=== PATIENT | male | born 1975 | race Hispanic/Latino ===

== ENCOUNTER 2021-03-07 13:47 | Emergency (ER) | payer OTHER, SELFPAY ==
--- NOTE | 2021-03-07 16:50 | Event Note ---
ED Screening Note ED Screening Note: pt reports he is having SI he states he would get a razor he states he began feeling like this yesterday he states he has also been having HI and "doing something stupid" but does not have a plan he has cut his wrist before he has been to a psych facility before pmhx skin cancer, paranoid schizophrenia, anxiety reports he is supposed to be taking gabapentin and seroquel and klonipin and lamictal +smoker non ETOH +cocaine This initial assessment/diagnostic orders/clinical plan/treatment(s) is/are subject to change based on patients health status, clinical progression and re- assessment by fellow clinical providers in the ED. Further treatment and workup at subsequent clinical providers discretion. Patient/guardian urged not to elope from the ED as their condition may be serious if not clinically assessed and managed. Initial orders include: mental health orders ED hold charge nurse notified pt needs room NATE
--- NOTE | 2021-03-07 17:16 | Emergency Department Report ---
HPI - General Chief Complaint: Medical Clearance Time Seen by Provider: 03/07/21 16:47 - HPI HPI: This is a 45-year-old male presents to the emergency department for a mental health evaluation. He has a history of paranoid schizophrenia and anx iety. The patient was previously on Seroquel and Klonopin, but has been out of his medication for a while. He endorses suicidal ideations in which he says he would get a razor and cut himself. He does not specifically endorse homicidal ideations, but does say that he has racing thoughts in which he might "do something stupid including hurt somebody." Overall the patient admits to these racing thoughts and has not been able to sleep over the past 48 hours. He does admit to using cocaine yesterday. He is an occasional tobacco smoker. He denies any current auditory or visual hallucinations. ED Past Medical Hx - Past Medical History Hx Seizures: Yes Hx Psychiatric Treatment: Yes (`DEPRESSION/ANXIETY) - Surgical History Past Surgical History?: No ED Review of Systems ROS: Stated complaint: NAUSEA/HEADACHES Other details as noted in HPI Comment: All other systems reviewed and negative Constitutional: denies: see HPI, fever Eyes: denies: eye pain, vision change Respiratory: denies: cough, shortness of breath Cardiovascular: denies: chest pain, palpitations Gastrointestinal: denies: abdominal pain, vomiting Musculoskeletal: denies: joint swelling, arthralgia Neurological: denies: headache, weakness Psychiatric: anxiety, suicidal thoughts. denies: auditory hallucinations, visual hallucinations Physical Exam - Physical Exam Vital Signs: Vital Signs 03/07/21 15:14 Temperature 98.1 F Pulse Rate 64 Respiratory 20 Rate Blood Pressure 125/77 [Right] O2 Sat by Pulse 96 Oximetry Physical Exam: GENERAL: The patient is well-developed well-nourished. HENT: Normocephalic. Atraumatic. Patient has moist mucous membranes. EYES: Extraocular motions are intact. NECK: Supple. Trachea is midline. CHEST/LUNGS: Clear to auscultation. There is no respiratory distress noted. HEART/CARDIOVASCULAR: Regular. There is no tachycardia. There is no murmur. ABDOMEN: Abdomen is soft, nontender. Patient has normal bowel sounds. SKIN: Skin is warm and dry. NEURO: The patient is awake, alert, and oriented. The patient is cooperative. Normal speech. MUSCULOSKELETAL: There is no tenderness or deformity. There is no limitation range of motion. ED Course Vital Signs 03/07/21 15:14 Temperature 98.1 F Pulse Rate 64 Respiratory 20 Rate Blood Pressure 125/77 [Right] O2 Sat by Pulse 96 Oximetry ED Medical Decision Making - Lab Data Result diagrams: 03/07/21 18:34 03/07/21 18:34 Lab Results 03/07/21 03/07/21 03/07/21 Range/Units 18:34 18:34 18:34 WBC 8.8 (4.5-11.0) K/mm3 RBC 4.81 (3.65-5.03) M/mm3 Hgb 15.5 H (11.8-15.2) gm/dl Hct 44.8 (35.5-45.6) % MCV 93 (84-94) fl MCH 32 (28-32) pg MCHC 35 H (32-34) % RDW 13.2 (13.2-15.2) % Plt Count 235 (140-440) K/mm3 Lymph % (Auto) 18.5 (13.4-35.0) % [place] % (Auto) 8.6 H (0.0-7.3) % Eos % (Auto) 0.4 (0.0-4.3) % Baso % (Auto) 0.6 (0.0-1.8) % Lymph # (Auto) 1.6 (1.2-5.4) K/mm3 [place] # (Auto) 0.8 (0.0-0.8) K/mm3 Eos # (Auto) 0.0 (0.0-0.4) K/mm3 Baso # (Auto) 0.1 (0.0-0.1) K/mm3 Seg Neutrophils % 71.9 H (40.0-70.0) % Seg Neutrophils # 6.4 (1.8-7.7) K/mm3 Sodium 140 (137-145) mmol/L Potassium 3.9 (3.6-5.0) mmol/L Chloride 101.7 (98-107) mmol/L Carbon Dioxide 26 (22-30) mmol/L Anion Gap 16 mmol/L BUN 14 (9-20) mg/dL Creatinine 1.0 (0.8-1.3) mg/dL Estimated GFR > 60 ml/min BUN/Creatinine Ratio 14 % Glucose 135 H (75-100) mg/dL Calcium 9.3 (8.4-10.2) mg/dL Total Bilirubin 0.70 (0.1-1.2) mg/dL AST 24 (5-40) units/L ALT 38 (7-56) units/L Alkaline Phosphatase 55 (35-129) units/L Total Protein 7.2 (6.3-8.2) g/dL Albumin 4.5 (3.9-5) g/dL Albumin/Globulin Ratio 1.7 % Urine Color (Yellow) Urine Turbidity (Clear) Urine pH (5.0-7.0) Ur Specific [place] (1.003-1.030) Urine Protein (Negative) mg/dL Urine Glucose (UA) (Negative) mg/dL Urine Ketones (Negative) mg/dL Urine Blood (Negative) Urine Nitrite (Negative) Urine Bilirubin (Negative) Urine Urobilinogen (<2.0) mg/dL Ur Leukocyte Esterase (Negative) Urine WBC (Auto) (0.0-6.0) /HPF Urine RBC (Auto) (0.0-6.0) /HPF Urine Mucus /HPF Urine Opiates Screen Urine Methadone Screen Ur Barbiturates Screen Ur Phencyclidine Scrn Ur Amphetamines Screen U Benzodiazepines Scrn Urine Cocaine Screen U Marijuana (THC) Screen Drugs of Abuse Note Plasma/Serum Alcohol < 0.01 (0-0.07) % 03/07/21 03/07/21 Range/Units Unknown Unknown WBC (4.5-11.0) K/mm3 RBC (3.65-5.03) M/mm3 Hgb (11.8-15.2) gm/dl Hct (35.5-45.6) % MCV (84-94) fl MCH (28-32) pg MCHC (32-34) % RDW (13.2-15.2) % Plt Count (140-440) K/mm3 Lymph % (Auto) (13.4-35.0) % [place] % (Auto) (0.0-7.3) % Eos % (Auto) (0.0-4.3) % Baso % (Auto) (0.0-1.8) % Lymph # (Auto) (1.2-5.4) K/mm3 [place] # (Auto) (0.0-0.8) K/mm3 Eos # (Auto) (0.0-0.4) K/mm3 Baso # (Auto) (0.0-0.1) K/mm3 Seg Neutrophils % (40.0-70.0) % Seg Neutrophils # (1.8-7.7) K/mm3 Sodium (137-145) mmol/L Potassium (3.6-5.0) mmol/L Chloride (98-107) mmol/L Carbon Dioxide (22-30) mmol/L Anion Gap mmol/L BUN (9-20) mg/dL Creatinine (0.8-1.3) mg/dL Estimated GFR ml/min BUN/Creatinine Ratio % Glucose (75-100) mg/dL Calcium (8.4-10.2) mg/dL Total Bilirubin (0.1-1.2) mg/dL AST (5-40) units/L ALT (7-56) units/L Alkaline Phosphatase (35-129) units/L Total Protein (6.3-8.2) g/dL Albumin (3.9-5) g/dL Albumin/Globulin Ratio % Urine Color Yellow (Yellow) Urine Turbidity Clear (Clear) Urine pH 6.0 (5.0-7.0) Ur Specific [place] 1.025 (1.003-1.030) Urine Protein 30 mg/dl (Negative) mg/dL Urine Glucose (UA) Neg (Negative) mg/dL Urine Ketones Neg (Negative) mg/dL Urine Blood Neg (Negative) Urine Nitrite Neg (Negative) Urine Bilirubin Neg (Negative) Urine Urobilinogen 2.0 (<2.0) mg/dL Ur Leukocyte Esterase Neg (Negative) Urine WBC (Auto) 1.0 (0.0-6.0) /HPF Urine RBC (Auto) 1.0 (0.0-6.0) /HPF Urine Mucus 2+ /HPF Urine Opiates Screen Negative Urine Methadone Screen Negative Ur Barbiturates Screen Negative Ur Phencyclidine Scrn Negative Ur Amphetamines Screen Negative U Benzodiazepines Scrn Negative Urine Cocaine Screen Positive U Marijuana (THC) Screen Negative Drugs of Abuse Note Disclamer Plasma/Serum Alcohol (0-0.07) % - Medical Decision Making This patient presents to the emergency department with both suicidal and homicidal ideations. For this reason he was placed on a 1013 and an ED hold. He was seen by the psychiatric filling and packing supervisor who agrees with the plan for inpatient stabilization. Labs have been mostly unremarkable including CBC, metabolic panel, blood alcohol level, urinalysis. UDS positive for cocaine, but the patient does not appear acutely intoxicated. Vital signs have been reassuring throughout his ED course thus far including being afebrile. Patient is medically cleared for psychiatric placement. Critical Care Time: No Critical care attestation.: If time is entered above; I have spent that time in minutes in the direct care of this critically ill patient, excluding procedure time. ED Disposition Clinical Impression: Suicidal ideations, Homicidal ideations, Schizophrenia Disposition: [address] [place] [address] HOSPITAL Is pt being admited?: No Condition: Stable Time of Disposition: 19:40
[2021-03-07] MEDS ORDERED: ONDANSETRON 4 MG ODT TAB PO ONE (18:02)
[2021-03-07] MEDS ORDERED: ACETAMINOPHEN 325 MG TAB PO ONE (18:03)
[2021-03-07 18:22] LABS: Amphetamine Screen,Urine Negative; Benzodiazepines Screen,Urine Negative; Cannabinoid Screen,Urine Negative; Methadone Screen,Urine Negative; Opiate Screen,Urine Negative
[2021-03-07 18:39] LABS: Cocaine Screen,Urine Positive
[2021-03-07 18:40] LABS: Bilirubin,Urine NEG (Negative); Blood,Urine NEG (Negative); Color,Urine Yellow (Yellow); Mucus,Urine 2+ /HPF
[2021-03-07 19:14] LABS: Alanine Aminotransferase 38 units/L (7-56); Albumin 4.5 g/dL (3.9-5); BUN/Creatinine Ratio 14; Blood Urea Nitrogen 14 mg/dL (9-20); Calcium 9.3 mg/dL (8.4-10.2); Hemolysis Index 15
[2021-03-07 19:25] LABS: Basophils # (Auto) 0.1 K/mm3 (0.0-0.1); Basophils % (Auto) 0.6 % (0.0-1.8); Eosinophils % (Auto) 0.4 % (0.0-4.3); Hematocrit 44.8 % (35.5-45.6); Hemoglobin 15.5 gm/dl (11.8-15.2); Lymphocytes # (Auto) 1.6 K/mm3 (1.2-5.4); Lymphocytes % (Auto) 18.5 % (13.4-35.0); Mean Corpuscular HGB Conc 35 % (32-34); Mean Corpuscular Volume 93 fl (84-94); Monocytes # (Auto) 0.8 K/mm3 (0.0-0.8); Monocytes % (Auto) 8.6 % (0.0-7.3); Platelet Count 235 K/mm3 (140-440); Red Blood Count 4.81 M/mm3 (3.65-5.03); Red Cell Distribution Width 13.2 % (13.2-15.2)
[2021-03-08 08:08] VITALS: BP 107/69
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
[2021-03-08] MEDS ORDERED: GABAPENTIN 100 MG CAP PO SCH ×2 (10:00→14:00)
[2021-03-08] MEDS ORDERED: lamoTRIgine 25 MG TAB PO SCH ×2 (10:00→16:00)
--- NOTE | 2021-03-08 10:36 | Event Note ---
Date: 03/08/21 S: No events reported overnight O: Vital Signs - 24 hr 03/07/21 03/07/21 03/07/21 15:14 17:34 19:51 Temperature 98.1 F Pulse Rate 64 Respiratory 20 20 Rate Blood Pressure 125/77 [Right] O2 Sat by Pulse 96 98 99 Oximetry 03/07/21 03/08/21 20:22 08:06 Temperature 98.1 F 98.0 F Pulse Rate 59 L 61 Respiratory 18 20 Rate Blood Pressure 115/81 107/69 [Right] O2 Sat by Pulse 97 96 Oximetry A: Suicidal ideation/1013 P: Awaiting inpatient psychiatric placement
[2021-03-08] MEDS ORDERED: clonazePAM 0.5 MG TAB PO SCH (14:00)
[2021-03-08] MEDS ORDERED: QUEtiapine 100 MG TAB PO SCH (22:00)
[2021-03-09] MEDS ORDERED: lamoTRIgine 25 MG TAB PO SCH (14:00)
== END 2021-03-08 17:12 ==
LOC: ED 13:47 → EEVIPCON 13:47 → ED 03-08 17:12
DX: R45.851 Suicidal ideations (principal); R45.850 Homicidal ideations; F20.9 Schizophrenia, unspecified; Z20.822 Contact with and (suspected) exposure to COVID-19; F41.9 Anxiety disorder, unspecified; F32.9 Major depressive disorder, single episode, unspecified
CPT/HCPCS: 36415; 80053; 80307; 81001; 85025; 99285; U0003; 80320; G0480; Q0162

== ENCOUNTER 2021-03-08 14:51 | Inpatient (IN) | payer SELFPAY ==
[2021-03-08] MEDS ORDERED: QUEtiapine 100 MG TAB PO SCH (22:00)
[2021-03-08] MEDS ORDERED: traZODone 50 MG TAB PO SCH (22:00)
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
[2021-03-09] MEDS: lamoTRIgine 25 MG TAB PO SCH (09:49)
[2021-03-09] MEDS: clonazePAM 0.5 MG TAB PO SCH ×3 (09:49→20:22)
[2021-03-09] MEDS: GABAPENTIN 100 MG CAP PO SCH ×3 (09:49→20:22)
[2021-03-09 10:24] LABS: Basophils % (Auto) 0.7 % (0.0-1.8); Eosinophils # (Auto) 0.1 K/mm3 (0.0-0.4); Eosinophils % (Auto) 1.9 % (0.0-4.3); Hematocrit 42.9 % (35.5-45.6); Hemoglobin 14.9 gm/dl (11.8-15.2); Lymphocytes # (Auto) 1.5 K/mm3 (1.2-5.4); Lymphocytes % (Auto) 24.8 % (13.4-35.0); Mean Corpuscular HGB Conc 35 % (32-34); Mean Corpuscular Volume 92 fl (84-94); Monocytes # (Auto) 0.7 K/mm3 (0.0-0.8); Monocytes % (Auto) 11.1 % (0.0-7.3); Platelet Count 207 K/mm3 (140-440); Red Blood Count 4.68 M/mm3 (3.65-5.03); Red Cell Distribution Width 13.1 % (13.2-15.2)
[2021-03-09 10:48] LABS: Alanine Aminotransferase 34 units/L (7-56); Albumin 4.2 g/dL (3.9-5); BUN/Creatinine Ratio 17; Blood Urea Nitrogen 19 mg/dL (9-20); Calcium 9.6 mg/dL (8.4-10.2); HDL Cholesterol 33 mg/dL (40-59); Hemolysis Index 15; LDL Cholesterol,Direct 99 mg/dL (50-130)
--- NOTE | 2021-03-09 14:12 | Consultation ---
History of Present Illness - History of Present Illness This is a 45-year-old male presents to the emergency department for a mental health evaluation. He has a history of paranoid schizophrenia and anxiety. The patient was previously on Seroquel and Klonopin, but has been out of his medication for a while. He endorses suicidal ideations in which he says he would get a razor and cut himself. He does not specifically endorse homicidal ideations, but does say that he has racing thoughts in which he might "do something stupid including hurt somebody." Overall the patient admits to these racing thoughts and has not been able to sleep over the past 48 hours. He does admit to using cocaine yesterday. He is an occasional tobacco smoker. He denies any current auditory or visual hallucinations. ED Past Medical Hx - Past Medical History Hx Seizures: Yes Hx Psychiatric Treatment: Yes (`DEPRESSION/ANXIETY) - Surgical History Past Surgical History?: No ED Review of Systems ROS: Stated complaint: NAUSEA/HEADACHES Other details as noted in HPI Medications and Allergies Allergies Allergy/AdvReac Type Severity Reaction Status Date / Time No Known Allergies Allergy Unverified 03/07/21 15:09 Home Medications Medication Instructions Recorded Confirmed Last Taken Type Gabapentin 100 mg PO TID 03/08/21 03/08/21 03/08/21 16:00 History QUEtiapine [SEROquel] 100 mg PO QHS 03/08/21 03/08/21 Unknown History clonazePAM [KlonoPIN] 0.25 mg PO TID 03/08/21 03/08/21 03/08/21 16:00 History lamoTRIgine [LaMICtal] 25 mg PO QDAY 03/08/21 03/08/21 Unknown History Active Meds: Active Medications Clonazepam (Clonazepam 0.5 Mg Tab) 0.25 mg PO TID [facility] Last Admin: 03/09/21 09:49 Dose: 0.25 mg Documented by: Gabapentin (Gabapentin 100 Mg Cap) 100 mg PO TID [facility] Last Admin: 03/09/21 09:49 Dose: 100 mg Documented by: Hydroxyzine Pamoate (Hydroxyzine Pamoate 25 Mg Cap) 25 mg PO Q6H PRN PRN Reason: Anxiety Lamotrigine (Lamotrigine 25 Mg Tab) 25 mg PO QDAY PENG Last Admin: 03/09/21 09:49 Dose: 25 mg Documented by: Quetiapine Fumarate (Quetiapine 100 Mg Tab) 100 mg PO QHS [facility] Exam - Constitutional Vitals: Temp Pulse Resp BP Pulse Ox 98.0 F 65 16 116/68 98 03/09/21 08:41 03/09/21 08:41 03/09/21 08:41 03/09/21 08:41 03/09/21 08:41 Results - Labs CBC & Chem 7: 03/09/21 10:01 03/09/21 10:01 Labs: Abnormal lab results 03/08/21 03/09/21 03/09/21 Range/Units 18:32 10:01 10:01 MCHC 35 H (32-34) % RDW 13.1 L (13.2-15.2) % [place] % (Auto) 11.1 H (0.0-7.3) % POC Glucose 106 H (70-105) mg/dL Triglycerides 209 H (2-149) mg/dL HDL Cholesterol 33 L (40-59) mg/dL
[2021-03-09] MEDS: QUEtiapine 100 MG TAB PO SCH (21:25)
[2021-03-10] MEDS: clonazePAM 0.5 MG TAB PO SCH ×3 (08:21→20:31)
[2021-03-10] MEDS: GABAPENTIN 100 MG CAP PO SCH ×3 (08:21→20:30)
--- NOTE | 2021-03-10 08:43 | Progress Note ---
Subjective Date of service: 03/10/21 Subjective Comment: 03/10/2021: The patient was seen eating breakfast, he reports doing well. He reports sleep as fair and appetite as good. He denies any current suicidal/homicidal ideation and denies hallucinations. Per nurse, the patient had a quiet night. No changes made today. REVIEW OF SYSTEMS Constitutional: Negative for weight loss ENT: Negative for stridor Respiratory: Negative for cough or hemoptysis All other systems reviewed and are negative MENTAL STATUS EXAMINATION General Appearance and Behavior: Age appropriate, good hygiene, wearing appropriate clothes, calm and cooperative polite with questioning. Cooperation: engaged Psychomotor Behavior: Psychomotor normal Mood: depressed Affect and affective range: congruent with stated mood Thought Process: goal directed Thought Content: Not SI Speech: Normal volume, Regular rate and rhythm, Suicidal Ideation: Denies Homicidal Ideation: Denies Hallucinations: Denies Delusions: None elicited Impulse Control: Questionable Insight and Judgment: Limited Memory: Limited Attention: attentive Orientation: a/o Assessment and Plan (1)Schizophrenia Treatment Plan Patient admitted for inpatient psychiatric evaluation, medication adjustment and close monitoring The patient's behavior, mood, sleep and appetite will be closely monitored. Patient enrolled in individual and group therapeutic sessions and encouraged to attend. Patient provided with a safe and structured environment. Patient's physical health needs will be addressed by the Hospitalist. Hospitalist Consulted Labs including CBC, CMP, Lipid profile and Hemoglobin A1C levels ordered for baseline reference Social Assessment will be completed and the Strap Buckler will work with patient and family to ensure a suitable and safe disposition Medication adjustment will be made as clinically indicated Continue home medications No changes made today The patient agreed to vince Klonopin and start Vistaril 25 mg po every 6 hours as needed for anxiety Usual Wellness Zoroastrian/Preservation: - Start Trazodone 50 mg po QHS & 50 mg po QHS PRN between 10 PM & 2 AM for insomnia - Start Melatonin 5 mg po QHS to promote circadian rhythm The patient agreed on the treatment plan, understood the risk, benefit, alternative treatment, potential consequence of no treatment, and gave informed consent. Estimated days: 5 Post hospital care: primary care provider, psychiatric provider Case staffed with Dr. Joseph Medications and Allergies Medications and Allergies Allergies Allergy/AdvReac Type Severity Reaction Status Date / Time No Known Allergies Allergy Unverified 03/07/21 15:09 Home Medications Medication Instructions Recorded Confirmed Last Taken Type Gabapentin 100 mg PO TID 03/08/21 03/08/21 03/08/21 16:00 History QUEtiapine [SEROquel] 100 mg PO QHS 03/08/21 03/08/21 Unknown History clonazePAM [KlonoPIN] 0.25 mg PO TID 03/08/21 03/08/21 03/08/21 16:00 History lamoTRIgine [LaMICtal] 25 mg PO QDAY 03/08/21 03/08/21 Unknown History Active Meds: Active Medications Clonazepam (Clonazepam 0.5 Mg Tab) 0.25 mg PO TID [facility] Last Admin: 03/10/21 08:21 Dose: 0.25 mg Documented by: Gabapentin (Gabapentin 100 Mg Cap) 100 mg PO TID [facility] Last Admin: 03/10/21 08:21 Dose: 100 mg Documented by: Hydroxyzine Pamoate (Hydroxyzine Pamoate 25 Mg Cap) 25 mg PO Q6H PRN PRN Reason: Anxiety Lamotrigine (Lamotrigine 25 Mg Tab) 25 mg PO QDAY [facility] Last Admin: 03/09/21 09:49 Dose: 25 mg Documented by: Quetiapine Fumarate (Quetiapine 100 Mg Tab) 100 mg PO QHS [facility] Last Admin: 03/09/21 21:25 Dose: 100 mg Documented by: Results - Results Labs/Vitals: Laboratory Last Values WBC 5.9 K/mm3 (4.5-11.0) 03/09/21 10:01 RBC 4.68 M/mm3 (3.65-5.03) 03/09/21 10:01 Hgb 14.9 gm/dl (11.8-15.2) 03/09/21 10:01 Hct 42.9 % (35.5-45.6) 03/09/21 10:01 MCV 92 fl (84-94) 03/09/21 10:01 MCH 32 pg (28-32) 03/09/21 10:01 MCHC 35 % (32-34) H 03/09/21 10:01 RDW 13.1 % (13.2-15.2) L 03/09/21 10:01 Plt Count 207 K/mm3 (140-440) 03/09/21 10:01 Lymph % (Auto) 24.8 % (13.4-35.0) 03/09/21 10:01 [place] % (Auto) 11.1 % (0.0-7.3) H 03/09/21 10:01 Eos % (Auto) 1.9 % (0.0-4.3) 03/09/21 10:01 Baso % (Auto) 0.7 % (0.0-1.8) 03/09/21 10:01 Lymph # (Auto) 1.5 K/mm3 (1.2-5.4) 03/09/21 10:01 [place] # (Auto) 0.7 K/mm3 (0.0-0.8) 03/09/21 10:01 Eos # (Auto) 0.1 K/mm3 (0.0-0.4) 03/09/21 10:01 Baso # (Auto) 0.0 K/mm3 (0.0-0.1) 03/09/21 10:01 Seg Neutrophils % 61.5 % (40.0-70.0) 03/09/21 10:01 Seg Neutrophils # 3.6 K/mm3 (1.8-7.7) 03/09/21 10:01 Sodium 140 mmol/L (137-145) 03/09/21 10:01 Potassium 4.1 mmol/L (3.6-5.0) 03/09/21 10:01 Chloride 103.8 mmol/L (98-107) 03/09/21 10:01 Carbon Dioxide 29 mmol/L (22-30) 03/09/21 10:01 Anion Gap 11 mmol/L 03/09/21 10:01 BUN 19 mg/dL (9-20) 03/09/21 10:01 Creatinine 1.1 mg/dL (0.8-1.3) 03/09/21 10:01 Estimated GFR > 60 ml/min 03/09/21 10:01 BUN/Creatinine Ratio 17 % 03/09/21 10:01 Glucose 83 mg/dL (75-100) 03/09/21 10:01 POC Glucose 106 mg/dL (70-105) H 03/08/21 18:32 Hemoglobin A1c 5.4 % (4-6) 03/09/21 10:01 Calcium 9.6 mg/dL (8.4-10.2) 03/09/21 10:01 Total Bilirubin 0.60 mg/dL (0.1-1.2) 03/09/21 10:01 AST 19 units/L (5-40) 03/09/21 10:01 ALT 34 units/L (7-56) 03/09/21 10:01 Alkaline Phosphatase 49 units/L (35-129) 03/09/21 10:01 Total Protein 6.5 g/dL (6.3-8.2) 03/09/21 10:01 Albumin 4.2 g/dL (3.9-5) 03/09/21 10:01 Albumin/Globulin Ratio 1.8 % 03/09/21 10:01 Triglycerides 209 mg/dL (2-149) H 03/09/21 10:01 Cholesterol 142 mg/dL (50-199) 03/09/21 10:01 LDL Cholesterol Direct 99 mg/dL (50-130) 03/09/21 10:01 HDL Cholesterol 33 mg/dL (40-59) L 03/09/21 10:01 Cholesterol/HDL Ratio 4.30 % 03/09/21 10:01 TSH 0.501 mlU/mL (0.270-4.200) 03/09/21 10:01 Last Vital Signs Temp 97.6 F 03/10/21 07:39 Pulse 48 L 03/10/21 07:39 Resp 16 03/10/21 07:39 BP 120/63 03/10/21 07:39 Pulse Ox 95 03/10/21 07:39
[2021-03-10] MEDS: lamoTRIgine 25 MG TAB PO SCH (09:10)
[2021-03-10] MEDS: QUEtiapine 100 MG TAB PO SCH (21:40)
[2021-03-11] MEDS: clonazePAM 0.5 MG TAB PO SCH ×3 (08:03→21:37)
[2021-03-11] MEDS: GABAPENTIN 100 MG CAP PO SCH ×3 (08:03→20:55)
--- NOTE | 2021-03-11 08:28 | Progress Note ---
Subjective Date of service: 03/11/21 Subjective Comment: 03/10/2021: The patient was seen eating breakfast, he reports doing well. He reports sleep as fair and appetite as good. He denies any current suicidal/homicidal ideation and denies hallucinations. Per nurse, the patient had a quiet night. No changes made today. 03/11/2021: The patient reports feeling better, but continues to have intermittent suicidal ideation. He states that he is worried about placement post discharge. He reports sleep as fair and appetite as good. He denies any current suicidal/homicidal ideation and denies hallucinations. Per nurse, the patient had a quiet night. Start lamictal 50mg po daily. REVIEW OF SYSTEMS Constitutional: Negative for weight loss ENT: Negative for stridor Respiratory: Negative for cough or hemoptysis All other systems reviewed and are negative MENTAL STATUS EXAMINATION General Appearance and Behavior: Age appropriate, good hygiene, wearing appropriate clothes, calm and cooperative polite with questioning. Cooperation: engaged Psychomotor Behavior: Psychomotor normal Mood: depressed Affect and affective range: congruent with stated mood Thought Process: goal directed Thought Content: Not SI Speech: Normal volume, Regular rate and rhythm, Suicidal Ideation: Denies Homicidal Ideation: Denies Hallucinations: Denies Delusions: None elicited Impulse Control: Questionable Insight and Judgment: Limited Memory: Limited Attention: attentive Orientation: a/o Assessment and Plan (1)Schizophrenia Treatment Plan Patient admitted for inpatient psychiatric evaluation, medication adjustment and close monitoring The patient's behavior, mood, sleep and appetite will be closely monitored. Patient enrolled in individual and group therapeutic sessions and encouraged to attend. Patient provided with a safe and structured environment. Patient's physical health needs will be addressed by the Hospitalist. Cristiana fowler Consulted Labs including CBC, CMP, Lipid profile and Hemoglobin A1C levels ordered for baseline reference Social Assessment will be completed and the Title Lawyer will work with patient and family to ensure a suitable and safe disposition Medication adjustment will be made as clinically indicated Continue home medications Start Lamictal 50mg po daily The patient agreed to vince Klonopin and start Vistaril 25 mg po every 6 hours as needed for anxiety Usual Wellness Buddhism/Preservation: - Start Trazodone 50 mg po QHS & 50 mg po QHS PRN between 10 PM & 2 AM for insomnia - Start Melatonin 5 mg po QHS to promote circadian rhythm The patient agreed on the treatment plan, understood the risk, benefit, alternative treatment, potential consequence of no treatment, and gave informed consent. Estimated days:5 Post hospital care: primary care provider, psychiatric provider Case staffed with Dr. Joseph Medications and Allergies Medications and Allergies Allergies Allergy/AdvReac Type Severity Reaction Status Date / Time No Known Allergies Allergy Unverified 03/07/21 15:09 Home Medications Medication Instructions Recorded Confirmed Last Taken Type Gabapentin 100 mg PO TID 03/08/21 03/08/21 03/08/21 16:00 History QUEtiapine [SEROquel] 100 mg PO QHS 03/08/21 03/08/21 Unknown History clonazePAM [KlonoPIN] 0.25 mg PO TID 03/08/21 03/08/21 03/08/21 16:00 History lamoTRIgine [LaMICtal] 25 mg PO QDAY 03/08/21 03/08/21 Unknown History Active Meds: Active Medications Clonazepam (Clonazepam 0.5 Mg Tab) 0.25 mg PO TID [facility] Last Admin: 03/11/21 08:03 Dose: 0.25 mg Documented by: Gabapentin (Gabapentin 100 Mg Cap) 100 mg PO TID [facility] Last Admin: 03/11/21 08:03 Dose: 100 mg Documented by: Hydroxyzine Pamoate (Hydroxyzine Pamoate 25 Mg Cap) 25 mg PO Q6H PRN PRN Reason: Anxiety Lamotrigine (Lamotrigine 25 Mg Tab) 25 mg PO QDAY [facility] Last Admin: 03/10/21 09:10 Dose: 25 mg Documented by: Quetiapine Fumarate (Quetiapine 100 Mg Tab) 100 mg PO QHS [facility] Last Admin: 03/10/21 21:40 Dose: 100 mg Documented by: Results - Results Labs/Vitals: Laboratory Last Values WBC 5.9 K/mm3 (4.5-11.0) 03/09/21 10:01 RBC 4.68 M/mm3 (3.65-5.03) 03/09/21 10:01 Hgb 14.9 gm/dl (11.8-15.2) 03/09/21 10:01 Hct 42.9 % (35.5-45.6) 03/09/21 10:01 MCV 92 fl (84-94) 03/09/21 10:01 MCH 32 pg (28-32) 03/09/21 10:01 MCHC 35 % (32-34) H 03/09/21 10:01 RDW 13.1 % (13.2-15.2) L 03/09/21 10:01 Plt Count 207 K/mm3 (140-440) 03/09/21 10:01 Lymph % (Auto) 24.8 % (13.4-35.0) 03/09/21 10:01 [place] % (Auto) 11.1 % (0.0-7.3) H 03/09/21 10:01 Eos % (Auto) 1.9 % (0.0-4.3) 03/09/21 10:01 Baso % (Auto) 0.7 % (0.0-1.8) 03/09/21 10:01 Lymph # (Auto) 1.5 K/mm3 (1.2-5.4) 03/09/21 10:01 [place] # (Auto) 0.7 K/mm3 (0.0-0.8) 03/09/21 10:01 Eos # (Auto) 0.1 K/mm3 (0.0-0.4) 03/09/21 10:01 Baso # (Auto) 0.0 K/mm3 (0.0-0.1) 03/09/21 10:01 Seg Neutrophils % 61.5 % (40.0-70.0) 03/09/21 10:01 Seg Neutrophils # 3.6 K/mm3 (1.8-7.7) 03/09/21 10:01 Sodium 140 mmol/L (137-145) 03/09/21 10:01 Potassium 4.1 mmol/L (3.6-5.0) 03/09/21 10:01 Chloride 103.8 mmol/L (98-107) 03/09/21 10:01 Carbon Dioxide 29 mmol/L (22-30) 03/09/21 10:01 Anion Gap 11 mmol/L 03/09/21 10:01 BUN 19 mg/dL (9-20) 03/09/21 10:01 Creatinine 1.1 mg/dL (0.8-1.3) 03/09/21 10:01 Estimated GFR > 60 ml/min 03/09/21 10:01 BUN/Creatinine Ratio 17 % 03/09/21 10:01 Glucose 83 mg/dL (75-100) 03/09/21 10:01 POC Glucose 106 mg/dL (70-105) H 03/08/21 18:32 Hemoglobin A1c 5.4 % (4-6) 03/09/21 10:01 Calcium 9.6 mg/dL (8.4-10.2) 03/09/21 10:01 Total Bilirubin 0.60 mg/dL (0.1-1.2) 03/09/21 10:01 AST 19 units/L (5-40) 03/09/21 10:01 ALT 34 units/L (7-56) 03/09/21 10:01 Alkaline Phosphatase 49 units/L (35-129) 03/09/21 10:01 Total Protein 6.5 g/dL (6.3-8.2) 03/09/21 10:01 Albumin 4.2 g/dL (3.9-5) 03/09/21 10:01 Albumin/Globulin Ratio 1.8 % 03/09/21 10:01 Triglycerides 209 mg/dL (2-149) H 03/09/21 10:01 Cholesterol 142 mg/dL (50-199) 03/09/21 10:01 LDL Cholesterol Direct 99 mg/dL (50-130) 03/09/21 10:01 HDL Cholesterol 33 mg/dL (40-59) L 03/09/21 10:01 Cholesterol/HDL Ratio 4.30 % 03/09/21 10:01 TSH 0.501 mlU/mL (0.270-4.200) 03/09/21 10:01 Last Vital Signs Temp 98.3 F 03/11/21 07:25 Pulse 44 L 03/11/21 07:25 Resp 18 03/11/21 07:25 BP 111/68 03/11/21 07:25 Pulse Ox 96 03/11/21 07:25
[2021-03-11] MEDS: lamoTRIgine 25 MG TAB PO SCH (09:36)
[2021-03-11] MEDS: QUEtiapine 100 MG TAB PO SCH (21:38)
--- NOTE | 2021-03-12 07:51 | Progress Note ---
Subjective Date of service: 03/12/21 Subjective Comment: 03/10/2021: The patient was seen eating breakfast, he reports doing well. He reports sleep as fair and appetite as good. He denies any current suicidal/homicidal ideation and denies hallucinations. Per nurse, the patient had a quiet night. No changes made today. 03/11/2021: The patient reports feeling better, but continues to have intermittent suicidal ideation. He states that he is worried about placement post discharge. He reports sleep as fair and appetite as good. He denies any current suicidal/homicidal ideation and denies hallucinations. Per nurse, the patient had a quiet night. Start lamictal 50mg po daily. 03/12/2021: The patient continues to endorse depression but states that it is improving. He reports sleep as fair and appetite as good. He denies any current suicidal/homicidal ideation and denies hallucinations. Per nurse, the patient had a quiet night. Per nurse the patient had a quiet night. Increased Seroquel to 150mg po QHS. REVIEW OF SYSTEMS Constitutional: Negative for weight loss ENT: Negative for stridor Respiratory: Negative for cough or hemoptysis All other systems reviewed and are negative MENTAL STATUS EXAMINATION General Appearance and Behavior: Age appropriate, good hygiene, wearing appropriate clothes, calm and cooperative polite with questioning. Cooperation: engaged Psychomotor Behavior: Psychomotor normal Mood: depressed Affect and affective range: congruent with stated mood Thought Process: goal directed Thought Content: Not SI Speech: Normal volume, Regular rate and rhythm, Suicidal Ideation: Denies Homicidal Ideation: Denies Hallucinations: Denies Delusions: None elicited Impulse Control: Questionable Insight and Judgment: Limited Memory: Limited Attention: attentive Orientation: a/o Assessment and Plan (1)Schizophrenia Treatment Plan Patient admitted for inpatient psychiatric evaluation, medication adjustment and close monitoring The patient's behavior, mood, sleep and appetite will be closely monitored. Patient enrolled in individual and group therapeutic sessions and encouraged to attend. Patient provided with a safe and structured environment. Patient's physical health needs will be addressed by the Hospitalist. Hospitalist Consulted Labs including CBC, CMP, Lipid profile and Hemoglobin A1C levels ordered for baseline reference Social Assessment will be completed and the Hydro Technician will work with patient and family to ensure a suitable and safe disposition Medication adjustment will be made as clinically indicated Continue home medications Continue Lamictal 50mg po daily Increase Seroquel to 150mg po QHS. The patient agreed to vince Klonopin and start Vistaril 25 mg po every 6 hours as needed for anxiety Usual Wellness Hinduism/Preservation: - Start Trazodone 50 mg po QHS & 50 mg po QHS PRN between 10 PM & 2 AM for insomnia - Start Melatonin 5 mg po QHS to promote circadian rhythm The patient agreed on the treatment plan, understood the risk, benefit, alternative treatment, potential consequence of no treatment, and gave informed consent. Estimated days:4 Post hospital care: primary care provider, psychiatric provider Case staffed with Dr. Joseph Medications and Allergies Medications and Allergies Allergies Allergy/AdvReac Type Severity Reaction Status Date / Time No Known Allergies Allergy Unverified 03/07/21 15:09 Home Medications Medication Instructions Recorded Confirmed Last Taken Type Gabapentin 100 mg PO TID 03/08/21 03/08/21 03/08/21 16:00 History QUEtiapine [SEROquel] 100 mg PO QHS 03/08/21 03/08/21 Unknown History clonazePAM [KlonoPIN] 0.25 mg PO TID 03/08/21 03/08/21 03/08/21 16:00 History lamoTRIgine [LaMICtal] 25 mg PO QDAY 03/08/21 03/08/21 Unknown History Active Meds: Active Medications Clonazepam (Clonazepam 0.5 Mg Tab) 0.25 mg PO TID [facility] Last Admin: 03/11/21 21:37 Dose: 0.25 mg Documented by: Gabapentin (Gabapentin 100 Mg Cap) 100 mg PO TID [facility] Last Admin: 03/11/21 20:55 Dose: 100 mg Documented by: Hydroxyzine Pamoate (Hydroxyzine Pamoate 25 Mg Cap) 25 mg PO Q6H PRN PRN Reason: Anxiety Lamotrigine (Lamotrigine 25 Mg Tab) 50 mg PO DAILY [facility] Last Admin: 03/11/21 09:36 Dose: 50 mg Documented by: Quetiapine Fumarate (Quetiapine 100 Mg Tab) 100 mg PO QHS [facility] Last Admin: 03/11/21 21:38 Dose: 100 mg Documented by: Results - Results Labs/Vitals: Laboratory Last Values WBC 5.9 K/mm3 (4.5-11.0) 03/09/21 10:01 RBC 4.68 M/mm3 (3.65-5.03) 03/09/21 10:01 Hgb 14.9 gm/dl (11.8-15.2) 03/09/21 10:01 Hct 42.9 % (35.5-45.6) 03/09/21 10:01 MCV 92 fl (84-94) 03/09/21 10:01 MCH 32 pg (28-32) 03/09/21 10:01 MCHC 35 % (32-34) H 03/09/21 10:01 RDW 13.1 % (13.2-15.2) L 03/09/21 10:01 Plt Count 207 K/mm3 (140-440) 03/09/21 10:01 Lymph % (Auto) 24.8 % (13.4-35.0) 03/09/21 10:01 [place] % (Auto) 11.1 % (0.0-7.3) H 03/09/21 10:01 Eos % (Auto) 1.9 % (0.0-4.3) 03/09/21 10:01 Baso % (Auto) 0.7 % (0.0-1.8) 03/09/21 10:01 Lymph # (Auto) 1.5 K/mm3 (1.2-5.4) 03/09/21 10:01 [place] # (Auto) 0.7 K/mm3 (0.0-0.8) 03/09/21 10:01 Eos # (Auto) 0.1 K/mm3 (0.0-0.4) 03/09/21 10:01 Baso # (Auto) 0.0 K/mm3 (0.0-0.1) 03/09/21 10:01 Seg Neutrophils % 61.5 % (40.0-70.0) 03/09/21 10:01 Seg Neutrophils # 3.6 K/mm3 (1.8-7.7) 03/09/21 10:01 Sodium 140 mmol/L (137-145) 03/09/21 10:01 Potassium 4.1 mmol/L (3.6-5.0) 03/09/21 10:01 Chloride 103.8 mmol/L (98-107) 03/09/21 10:01 Carbon Dioxide 29 mmol/L (22-30) 03/09/21 10:01 Anion Gap 11 mmol/L 03/09/21 10:01 BUN 19 mg/dL (9-20) 03/09/21 10:01 Creatinine 1.1 mg/dL (0.8-1.3) 03/09/21 10:01 Estimated GFR > 60 ml/min 03/09/21 10:01 BUN/Creatinine Ratio 17 % 03/09/21 10:01 Glucose 83 mg/dL (75-100) 03/09/21 10:01 POC Glucose 106 mg/dL (70-105) H 03/08/21 18:32 Hemoglobin A1c 5.4 % (4-6) 03/09/21 10:01 Calcium 9.6 mg/dL (8.4-10.2) 03/09/21 10:01 Total Bilirubin 0.60 mg/dL (0.1-1.2) 03/09/21 10:01 AST 19 units/L (5-40) 03/09/21 10:01 ALT 34 units/L (7-56) 03/09/21 10:01 Alkaline Phosphatase 49 units/L (35-129) 03/09/21 10:01 Total Protein 6.5 g/dL (6.3-8.2) 03/09/21 10:01 Albumin 4.2 g/dL (3.9-5) 03/09/21 10:01 Albumin/Globulin Ratio 1.8 % 03/09/21 10:01 Triglycerides 209 mg/dL (2-149) H 03/09/21 10:01 Cholesterol 142 mg/dL (50-199) 03/09/21 10:01 LDL Cholesterol Direct 99 mg/dL (50-130) 03/09/21 10:01 HDL Cholesterol 33 mg/dL (40-59) L 03/09/21 10:01 Cholesterol/HDL Ratio 4.30 % 03/09/21 10:01 TSH 0.501 mlU/mL (0.270-4.200) 03/09/21 10:01 Last Vital Signs Temp 99.5 F 03/11/21 19:24 Pulse 64 03/11/21 19:24 Resp 16 03/11/21 19:24 BP 124/74 03/11/21 19:24 Pulse Ox 96 03/11/21 19:24
[2021-03-12] MEDS: GABAPENTIN 100 MG CAP PO SCH ×3 (10:10→20:32)
[2021-03-12] MEDS: lamoTRIgine 25 MG TAB PO SCH (10:10)
[2021-03-12] MEDS: clonazePAM 0.5 MG TAB PO SCH ×3 (10:11→20:32)
[2021-03-12] MEDS: QUEtiapine 25 MG TAB PO SCH (21:11)
[2021-03-12] MEDS: QUEtiapine 100 MG TAB PO SCH (21:12)
--- NOTE | 2021-03-13 08:22 | Discharge Summary ---
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 The patients mood, cognition, behavior, motivation, compliance to treatment and appreciation on family/social support are improved and stabilized. At the time of discharge, the patient had no suicidal ideas, no homicidal ideas, no aggressive thoughts, no endangering behavior and no debilitating adverse effects. The patient agreed on the treatment plan, understood the risk, benefit, alternative treatment, potential consequence of no treatment, and gave informed consent. Progress note: 03/10/2021: The patient was seen eating breakfast, he reports doing well. He reports sleep as fair and appetite as good. He denies any current suicid al/homicidal ideation and denies hallucinations. Per nurse, the patient had a quiet night. No changes made today. 03/11/2021: The patient reports feeling better, but continues to have intermittent suicidal ideation. He states that he is worried about placement post discharge. He reports sleep as fair and appetite as good. He denies any current suicidal/homicidal ideation and denies hallucinations. Per nurse, the patient had a quiet night. Start lamictal 50mg po daily. 03/12/2021: The patient continues to endorse depression but states that it is improving. He reports sleep as fair and appetite as good. He denies any current suicidal/homicidal ideation and denies hallucinations. Per nurse, the patient had a quiet night. Per nurse the patient had a quiet night. Increased Seroquel to 150mg po QHS. Allergies/Adverse Reactions: Allergies No Known Allergies Allergy (Unverified 03/07/21 15:09) Vital Signs: Last Vital Signs Temp 98.7 F 03/12/21 19:31 Pulse 62 03/12/21 19:31 Resp 18 03/12/21 19:31 BP 127/81 03/12/21 19:31 Pulse Ox 96 03/12/21 19:31 Last Lab: Laboratory Last Values WBC 5.9 K/mm3 (4.5-11.0) 03/09/21 10:01 RBC 4.68 M/mm3 (3.65-5.03) 03/09/21 10:01 Hgb 14.9 gm/dl (11.8-15.2) 03/09/21 10:01 Hct 42.9 % (35.5-45.6) 03/09/21 10:01 MCV 92 fl (84-94) 03/09/21 10:01 MCH 32 pg (28-32) 03/09/21 10:01 MCHC 35 % (32-34) H 03/09/21 10:01 RDW 13.1 % (13.2-15.2) L 03/09/21 10:01 Plt Count 207 K/mm3 (140-440) 03/09/21 10:01 Lymph % (Auto) 24.8 % (13.4-35.0) 03/09/21 10:01 [place] % (Auto) 11.1 % (0.0-7.3) H 03/09/21 10:01 Eos % (Auto) 1.9 % (0.0-4.3) 03/09/21 10:01 Baso % (Auto) 0.7 % (0.0-1.8) 03/09/21 10:01 Lymph # (Auto) 1.5 K/mm3 (1.2-5.4) 03/09/21 10:01 [place] # (Auto) 0.7 K/mm3 (0.0-0.8) 03/09/21 10:01 Eos # (Auto) 0.1 K/mm3 (0.0-0.4) 03/09/21 10:01 Baso # (Auto) 0.0 K/mm3 (0.0-0.1) 03/09/21 10:01 Seg Neutrophils % 61.5 % (40.0-70.0) 03/09/21 10:01 Seg Neutrophils # 3.6 K/mm3 (1.8-7.7) 03/09/21 10:01 Sodium 140 mmol/L (137-145) 03/09/21 10:01 Potassium 4.1 mmol/L (3.6-5.0) 03/09/21 10:01 Chloride 103.8 mmol/L (98-107) 03/09/21 10:01 Carbon Dioxide 29 mmol/L (22-30) 03/09/21 10:01 Anion Gap 11 mmol/L 03/09/21 10:01 BUN 19 mg/dL (9-20) 03/09/21 10:01 Creatinine 1.1 mg/dL (0.8-1.3) 03/09/21 10:01 Estimated GFR > 60 ml/min 03/09/21 10:01 BUN/Creatinine Ratio 17 % 03/09/21 10:01 Glucose 83 mg/dL (75-100) 03/09/21 10:01 POC Glucose 106 mg/dL (70-105) H 03/08/21 18:32 Hemoglobin A1c 5.4 % (4-6) 03/09/21 10:01 Calcium 9.6 mg/dL (8.4-10.2) 03/09/21 10:01 Total Bilirubin 0.60 mg/dL (0.1-1.2) 03/09/21 10:01 AST 19 units/L (5-40) 03/09/21 10:01 ALT 34 units/L (7-56) 03/09/21 10:01 Alkaline Phosphatase 49 units/L (35-129) 03/09/21 10:01 Total Protein 6.5 g/dL (6.3-8.2) 03/09/21 10:01 Albumin 4.2 g/dL (3.9-5) 03/09/21 10:01 Albumin/Globulin Ratio 1.8 % 03/09/21 10:01 Triglycerides 209 mg/dL (2-149) H 03/09/21 10:01 Cholesterol 142 mg/dL (50-199) 03/09/21 10:01 LDL Cholesterol Direct 99 mg/dL (50-130) 03/09/21 10:01 HDL Cholesterol 33 mg/dL (40-59) L 03/09/21 10:01 Cholesterol/HDL Ratio 4.30 % 03/09/21 10:01 TSH 0.501 mlU/mL (0.270-4.200) 03/09/21 10:01 Core Measure Documentation - Palliative Care Palliative Care/ Comfort Measures: Not Applicable Exam - Constitutional Vitals: Temp Pulse Resp BP Pulse Ox 98.7 F 62 18 127/81 96 03/12/21 19:31 03/12/21 19:31 03/12/21 19:31 03/12/21 19:31 03/12/21 19:31 Plan Follow up with: PRIMARY MD KHOA [Primary Care Provider] - 7 Days
--- NOTE | 2021-03-13 08:23 | Progress Note ---
Subjective Date of service: 03/13/21 Subjective Comment: 03/10/2021: The patient was seen eating breakfast, he reports doing well. He reports sleep as fair and appetite as good. He denies any current suicidal/homicidal ideation and denies hallucinations. Per nurse, the patient had a quiet night. No changes made today. 03/11/2021: The patient reports feeling better, but continues to have intermittent suicidal ideation. He states that he is worried about placement post discharge. He reports sleep as fair and appetite as good. He denies any current suicidal/homicidal ideation and denies hallucinations. Per nurse, the patient had a quiet night. Start lamictal 50mg po daily. 03/12/2021: The patient continues to endorse depression but states that it is improving. He reports sleep as fair and appetite as good. He denies any current suicidal/homicidal ideation and denies hallucinations. Per nurse, the patient had a quiet night. Per nurse the patient had a quiet night. Increased Seroquel to 150mg po QHS. 03/13/2021: The patient reports that he is doing better. He reports sleep as fair and appetite as good. He denies any current suicidal/homicidal ideation and denies hallucinations. Per nurse, the patient had a quiet night. Per nurse the patient had a quiet night. Will initiate Klonopin vince, patient was advised to request for Vistaril as a breakthrough. REVIEW OF SYSTEMS Constitutional: Negative for weight loss ENT: Negative for stridor Respiratory: Negative for cough or hemoptysis All other systems reviewed and are negative MENTAL STATUS EXAMINATION General Appearance and Behavior: Age appropriate, good hygiene, wearing appropriate clothes, calm and cooperative polite with questioning. Cooperation: engaged Psychomotor Behavior: Psychomotor normal Mood: depressed Affect and affective range: congruent with stated mood Thought Process: goal directed Thought Content: Not SI Speech: Normal volume, Regular rate and rhythm, Suicidal Ideation: Denies Homicidal Ideation: Denies Hallucinations: Denies Delusions: None elicited Impulse Control: Questionable Insight and Judgment: Limited Memory: Limited Attention: attentive Orientation: a/o Assessment and Plan (1)Schizophrenia Treatment Plan Patient admitted for inpatient psychiatric evaluation, medication adjustment a nd close monitoring The patient's behavior, mood, sleep and appetite will be closely monitored. Patient enrolled in individual and group therapeutic sessions and encouraged to attend. Patient provided with a safe and structured environment. Patient's physical health needs will be addressed by the Hospitalist. Hospitalist Consulted Labs including CBC, CMP, Lipid profile and Hemoglobin A1C levels ordered for baseline reference Social Assessment will be completed and the Financial Project Manager will work with patient and family to ensure a suitable and safe disposition Medication adjustment will be made as clinically indicated Continue home medications Continue Lamictal 50mg po daily Increase Seroquel to 150mg po QHS. The patient agreed to vince Klonopin and start Vistaril 25 mg po every 6 hours as needed for anxiety Usual Wellness Gnosticism/Preservation: - Start Trazodone 50 mg po QHS & 50 mg po QHS PRN between 10 PM & 2 AM for insomnia - Start Melatonin 5 mg po QHS to promote circadian rhythm The patient agreed on the treatment plan, understood the risk, benefit, alternative treatment, potential consequence of no treatment, and gave informed consent. Estimated days:4 Post hospital care: primary care provider, psychiatric provider Case staffed with Dr. Joseph Medications and Allergies Medications and Allergies Allergies Allergy/AdvReac Type Severity Reaction Status Date / Time No Known Allergies Allergy Unverified 03/07/21 15:09 Home Medications Medication Instructions Recorded Confirmed Last Taken Type Gabapentin 100 mg PO TID 03/08/21 03/08/21 03/08/21 16:00 History QUEtiapine [SEROquel] 100 mg PO QHS 03/08/21 03/08/21 Unknown History clonazePAM [KlonoPIN] 0.25 mg PO TID 03/08/21 03/08/21 03/08/21 16:00 History lamoTRIgine [LaMICtal] 25 mg PO QDAY 03/08/21 03/08/21 Unknown History Active Meds: Active Medications Clonazepam (Clonazepam 0.5 Mg Tab) 0.25 mg PO TID [facility] Last Admin: 03/12/21 20:32 Dose: 0.25 mg Documented by: Gabapentin (Gabapentin 100 Mg Cap) 100 mg PO TID [facility] Last Admin: 03/12/21 20:32 Dose: 100 mg Documented by: Hydroxyzine Pamoate (Hydroxyzine Pamoate 25 Mg Cap) 25 mg PO Q6H PRN PRN Reason: Anxiety Lamotrigine (Lamotrigine 25 Mg Tab) 50 mg PO DAILY [facility] Last Admin: 03/12/21 10:10 Dose: 50 mg Documented by: Quetiapine Fumarate (Quetiapine 100 Mg Tab) 100 mg PO QHS [facility] Last Admin: 03/12/21 21:12 Dose: 100 mg Documented by: Quetiapine Fumarate (Quetiapine 25 Mg Tab) 50 mg PO QHS [facility] Last Admin: 03/12/21 21:11 Dose: 50 mg Documented by: Results - Results Labs/Vitals: Laboratory Last Values WBC 5.9 K/mm3 (4.5-11.0) 03/09/21 10:01 RBC 4.68 M/mm3 (3.65-5.03) 03/09/21 10:01 Hgb 14.9 gm/dl (11.8-15.2) 03/09/21 10:01 Hct 42.9 % (35.5-45.6) 03/09/21 10:01 MCV 92 fl (84-94) 03/09/21 10:01 MCH 32 pg (28-32) 03/09/21 10:01 MCHC 35 % (32-34) H 03/09/21 10:01 RDW 13.1 % (13.2-15.2) L 03/09/21 10:01 Plt Count 207 K/mm3 (140-440) 03/09/21 10:01 Lymph % (Auto) 24.8 % (13.4-35.0) 03/09/21 10:01 [place] % (Auto) 11.1 % (0.0-7.3) H 03/09/21 10:01 Eos % (Auto) 1.9 % (0.0-4.3) 03/09/21 10:01 Baso % (Auto) 0.7 % (0.0-1.8) 03/09/21 10:01 Lymph # (Auto) 1.5 K/mm3 (1.2-5.4) 03/09/21 10:01 [place] # (Auto) 0.7 K/mm3 (0.0-0.8) 03/09/21 10:01 Eos # (Auto) 0.1 K/mm3 (0.0-0.4) 03/09/21 10:01 Baso # (Auto) 0.0 K/mm3 (0.0-0.1) 03/09/21 10:01 Seg Neutrophils % 61.5 % (40.0-70.0) 03/09/21 10:01 Seg Neutrophils # 3.6 K/mm3 (1.8-7.7) 03/09/21 10:01 Sodium 140 mmol/L (137-145) 03/09/21 10:01 Potassium 4.1 mmol/L (3.6-5.0) 03/09/21 10:01 Chloride 103.8 mmol/L (98-107) 03/09/21 10:01 Carbon Dioxide 29 mmol/L (22-30) 03/09/21 10:01 Anion Gap 11 mmol/L 03/09/21 10:01 BUN 19 mg/dL (9-20) 03/09/21 10:01 Creatinine 1.1 mg/dL (0.8-1.3) 03/09/21 10:01 Estimated GFR > 60 ml/min 03/09/21 10:01 BUN/Creatinine Ratio 17 % 03/09/21 10:01 Glucose 83 mg/dL (75-100) 03/09/21 10:01 POC Glucose 106 mg/dL (70-105) H 03/08/21 18:32 Hemoglobin A1c 5.4 % (4-6) 03/09/21 10:01 Calcium 9.6 mg/dL (8.4-10.2) 03/09/21 10:01 Total Bilirubin 0.60 mg/dL (0.1-1.2) 03/09/21 10:01 AST 19 units/L (5-40) 03/09/21 10:01 ALT 34 units/L (7-56) 03/09/21 10:01 Alkaline Phosphatase 49 units/L (35-129) 03/09/21 10:01 Total Protein 6.5 g/dL (6.3-8.2) 03/09/21 10:01 Albumin 4.2 g/dL (3.9-5) 03/09/21 10:01 Albumin/Globulin Ratio 1.8 % 03/09/21 10:01 Triglycerides 209 mg/dL (2-149) H 03/09/21 10:01 Cholesterol 142 mg/dL (50-199) 03/09/21 10:01 LDL Cholesterol Direct 99 mg/dL (50-130) 03/09/21 10:01 HDL Cholesterol 33 mg/dL (40-59) L 03/09/21 10:01 Cholesterol/HDL Ratio 4.30 % 03/09/21 10:01 TSH 0.501 mlU/mL (0.270-4.200) 03/09/21 10:01 Last Vital Signs Temp 98.7 F 03/12/21 19:31 Pulse 62 03/12/21 19:31 Resp 18 03/12/21 19:31 BP 127/81 03/12/21 19:31 Pulse Ox 96 03/12/21 19:31
[2021-03-13] MEDS: lamoTRIgine 25 MG TAB PO SCH (09:17)
[2021-03-13] MEDS: GABAPENTIN 100 MG CAP PO SCH ×3 (09:17→20:55)
[2021-03-13] MEDS: clonazePAM 0.5 MG TAB PO SCH ×3 (09:18→21:25)
[2021-03-13] MEDS ORDERED: clonazePAM 0.5 MG TAB PO SCH (10:00)
[2021-03-13] MEDS: ACETAMINOPHEN 325 MG TAB PO PRN (13:43)
[2021-03-13] MEDS: hydrOXYzine PAMOATE 25 MG CAP PO PRN (13:44)
[2021-03-13] MEDS: QUEtiapine 100 MG TAB PO SCH (21:21)
[2021-03-13] MEDS: QUEtiapine 25 MG TAB PO SCH (21:22)
--- NOTE | 2021-03-14 07:07 | Progress Note ---
Subjective Date of service: 03/14/21 Principal diagnosis: schizophrenia Subjective Comment: The patient was seen today. He is sleeping but easily arouses. He denies suicidal thoughts at present but states he was yesterday. He denies hallucination of any kind. He says he slept well and his appetite is fair. REVIEW OF SYSTEMS Constitutional: Negative for weight loss ENT: Negative for stridor Respiratory: Negative for cough or hemoptysis All other systems reviewed and are negative MENTAL STATUS EXAMINATION General Appearance and Behavior: Age appropriate, good hygiene, wearing appropriate clothes, calm and cooperative polite with questioning. Cooperation: engaged Psychomotor Behavior: Psychomotor normal Mood: depressed Affect and affective range: congruent with stated mood Thought Process: goal directed Thought Content: Not SI Speech: Normal volume, Regular rate and rhythm, Suicidal Ideation: Denies Homicidal Ideation: Denies Hallucinations: Denies Delusions: None elicited Impulse Control: Questionable Insight and Judgment: Limited Memory: Limited Attention: attentive Orientation: a/o Assessment and Plan (1)Schizophrenia Treatment Plan Patient admitted for inpatient psychiatric evaluation, medication adjustment and close monitoring The patient's behavior, mood, sleep and appetite will be closely monitored. Patient enrolled in individual and group therapeutic sessions and encouraged to attend. Patient provided with a safe and structured environment. Patient's physical health needs will be addressed by the Hospitalist. Ho spitalist Consulted Labs including CBC, CMP, Lipid profile and Hemoglobin A1C levels ordered for baseline reference Social Assessment will be completed and the Locomotive Driver will work with patient and family to ensure a suitable and safe disposition Medication adjustment will be made as clinically indicated Continue home medications Continue Lamictal 50mg po daily Increased Seroquel to 150mg po QHS. yesterday The patient agreed to vince Klonopin and start Vistaril 25 mg po every 6 hours as needed for anxiety Usual Wellness Mormon/Preservation: - Start Trazodone 50 mg po QHS & 50 mg po QHS PRN between 10 PM & 2 AM for insomnia - Start Melatonin 5 mg po QHS to promote circadian rhythm The patient agreed on the treatment plan, understood the risk, benefit, alternative treatment, potential consequence of no treatment, and gave informed consent. Estimated days:4 Post hospital care: primary care provider, psychiatric provider Case staffed with Dr. Joseph Medications and Allergies Allergies Allergy/AdvReac Type Severity Reaction Status Date / Time No Known Allergies Allergy Unverified 03/07/21 15:09 Home Medications Medication Instructions Recorded Confirmed Last Taken Type Gabapentin 100 mg PO TID 03/08/21 03/08/21 03/08/21 16:00 History QUEtiapine [SEROquel] 100 mg PO QHS 03/08/21 03/08/21 Unknown History clonazePAM [KlonoPIN] 0.25 mg PO TID 03/08/21 03/08/21 03/08/21 16:00 History lamoTRIgine [LaMICtal] 25 mg PO QDAY 03/08/21 03/08/21 Unknown History Active Meds: Active Medications Acetaminophen (Acetaminophen 325 Mg Tab) 650 mg PO Q6H PRN PRN Reason: Pain, Mild (1-3) Last Admin: 03/13/21 13:43 Dose: 650 mg Documented by: Clonazepam (Clonazepam 0.5 Mg Tab) 0.25 mg PO BID [facility] Last Admin: 03/13/21 21:25 Dose: 0.25 mg Documented by: Gabapentin (Gabapentin 100 Mg Cap) 100 mg PO TID [facility] Last Admin: 03/13/21 20:55 Dose: 100 mg Documented by: Hydroxyzine Pamoate (Hydroxyzine Pamoate 25 Mg Cap) 25 mg PO Q6H PRN PRN Reason: Anxiety Last Admin: 03/13/21 13:44 Dose: 25 mg Documented by: Lamotrigine (Lamotrigine 25 Mg Tab) 50 mg PO DAILY [facility] Last Admin: 03/13/21 09:17 Dose: 50 mg Documented by: Quetiapine Fumarate (Quetiapine 100 Mg Tab) 100 mg PO QHS [facility] Last Admin: 03/13/21 21:21 Dose: 100 mg Documented by: Quetiapine Fumarate (Quetiapine 25 Mg Tab) 50 mg PO QHS [facility] Last Admin: 03/13/21 21:22 Dose: 50 mg Documented by: Results - Results Labs/Vitals: Laboratory Last Values WBC 5.9 K/mm3 (4.5-11.0) 03/09/21 10:01 RBC 4.68 M/mm3 (3.65-5.03) 03/09/21 10:01 Hgb 14.9 gm/dl (11.8-15.2) 03/09/21 10:01 Hct 42.9 % (35.5-45.6) 03/09/21 10:01 MCV 92 fl (84-94) 03/09/21 10:01 MCH 32 pg (28-32) 03/09/21 10:01 MCHC 35 % (32-34) H 03/09/21 10:01 RDW 13.1 % (13.2-15.2) L 03/09/21 10:01 Plt Count 207 K/mm3 (140-440) 03/09/21 10:01 Lymph % (Auto) 24.8 % (13.4-35.0) 03/09/21 10:01 [place] % (Auto) 11.1 % (0.0-7.3) H 03/09/21 10:01 Eos % (Auto) 1.9 % (0.0-4.3) 03/09/21 10:01 Baso % (Auto) 0.7 % (0.0-1.8) 03/09/21 10:01 Lymph # (Auto) 1.5 K/mm3 (1.2-5.4) 03/09/21 10:01 [place] # (Auto) 0.7 K/mm3 (0.0-0.8) 03/09/21 10:01 Eos # (Auto) 0.1 K/mm3 (0.0-0.4) 03/09/21 10:01 Baso # (Auto) 0.0 K/mm3 (0.0-0.1) 03/09/21 10:01 Seg Neutrophils % 61.5 % (40.0-70.0) 03/09/21 10:01 Seg Neutrophils # 3.6 K/mm3 (1.8-7.7) 03/09/21 10:01 Sodium 140 mmol/L (137-145) 03/09/21 10:01 Potassium 4.1 mmol/L (3.6-5.0) 03/09/21 10:01 Chloride 103.8 mmol/L (98-107) 03/09/21 10:01 Carbon Dioxide 29 mmol/L (22-30) 03/09/21 10:01 Anion Gap 11 mmol/L 03/09/21 10:01 BUN 19 mg/dL (9-20) 03/09/21 10:01 Creatinine 1.1 mg/dL (0.8-1.3) 03/09/21 10:01 Estimated GFR > 60 ml/min 03/09/21 10:01 BUN/Creatinine Ratio 17 % 03/09/21 10:01 Glucose 83 mg/dL (75-100) 03/09/21 10:01 POC Glucose 106 mg/dL (70-105) H 03/08/21 18:32 Hemoglobin A1c 5.4 % (4-6) 03/09/21 10:01 Calcium 9.6 mg/dL (8.4-10.2) 03/09/21 10:01 Total Bilirubin 0.60 mg/dL (0.1-1.2) 03/09/21 10:01 AST 19 units/L (5-40) 03/09/21 10:01 ALT 34 units/L (7-56) 03/09/21 10:01 Alkaline Phosphatase 49 units/L (35-129) 03/09/21 10:01 Total Protein 6.5 g/dL (6.3-8.2) 03/09/21 10:01 Albumin 4.2 g/dL (3.9-5) 03/09/21 10:01 Albumin/Globulin Ratio 1.8 % 03/09/21 10:01 Triglycerides 209 mg/dL (2-149) H 03/09/21 10:01 Cholesterol 142 mg/dL (50-199) 03/09/21 10:01 LDL Cholesterol Direct 99 mg/dL (50-130) 03/09/21 10:01 HDL Cholesterol 33 mg/dL (40-59) L 03/09/21 10:01 Cholesterol/HDL Ratio 4.30 % 03/09/21 10:01 TSH 0.501 mlU/mL (0.270-4.200) 03/09/21 10:01 Last Vital Signs Temp 98.9 F 03/13/21 19:32 Pulse 62 03/13/21 19:32 Resp 16 03/13/21 19:32 BP 125/72 03/13/21 19:32 Pulse Ox 97 03/13/21 19:32
[2021-03-14] MEDS: clonazePAM 0.5 MG TAB PO SCH ×2 (09:29→21:27)
[2021-03-14] MEDS: lamoTRIgine 25 MG TAB PO SCH (09:29)
[2021-03-14] MEDS: GABAPENTIN 100 MG CAP PO SCH ×3 (09:30→20:42)
[2021-03-14] MEDS: hydrOXYzine PAMOATE 25 MG CAP PO PRN ×2 (15:43→22:17)
[2021-03-14] MEDS: QUEtiapine 25 MG TAB PO SCH (21:27)
[2021-03-14] MEDS: QUEtiapine 100 MG TAB PO SCH (21:27)
--- NOTE | 2021-03-15 08:52 | Progress Note ---
Subjective Date of service: 03/15/21 Principal diagnosis: schizophrenia Subjective Comment: 03/10/2021: The patient was seen eating breakfast, he reports doing well. He reports sleep as fair and appetite as good. He denies any current suicidal/homicidal ideation and denies hallucinations. Per nurse, the patient had a quiet night. No changes made today. 03/11/2021: The patient reports feeling better, but continues to have intermittent suicidal ideation. He states that he is worried about placement post discharge. He reports sleep as fair and appetite as good. He denies any current suicidal/homicidal ideation and denies hallucinations. Per nurse, the patient had a quiet night. Start lamictal 50mg po daily. 03/12/2021: The patient continues to endorse depression but states that it is improving. He reports sleep as fair and appetite as good. He denies any current suicidal/homicidal ideation and denies hallucinations. Per nurse, the patient had a quiet night. Per nurse the patient had a quiet night. Increased Seroquel to 150mg po QHS. 03/13/2021: The patient reports that he is doing better. He reports sleep as fair and appetite as good. He denies any current suicidal/homicidal ideation and denies hallucinations. Per nurse, the patient had a quiet night. Per nurse the patient had a quiet night. Will initiate Klonopin vince, patient was advised to request for Vistaril as a breakthrough. 03/14/2021: The patient was seen today. He is sleeping but easily arouses. He denies suicidal thoughts at present but states he was yesterday. He denies hallucination of any kind. He says he slept well and his appetite is fair. 03/15/2021: The patient was seen eating breakfast. He reports doing well on Klonopin tapering. He reports sleep as fair and appetite as good. He denies any current suicidal/homicidal ideation and denies hallucinations. Per nurse, the patient had a quiet night. Per nurse the patient had a quiet night. REVIEW OF SYSTEMS Constitutional: Negative for weight loss ENT: Negative for stridor Respiratory: Negative for cough or hemoptysis All other systems reviewed and are negative MENTAL STATUS EXAMINATION General Appearance and Behavior: Age appropriate, good hygiene, wearing appropriate clothes, calm and cooperative polite with questioning. Cooperation: engaged Psychomotor Behavior: Psychomotor normal Mood: " OK" Affect and affective range: congruent with stated mood Thought Process: goal directed Thought Content: Not SI Speech: Normal volume, Regular rate and rhythm, Suicidal Ideation: Denies Homicidal Ideation: Denies Hallucinations: Denies Delusions: None elicited Impulse Control: Questionable Insight and Judgment: Limited Memory: Limited Attention: attentive Orientation: a/o Assessment and Plan (1)Schizophrenia Treatment Plan Patient admitted for inpatient psychiatric evaluation, medication adjustment and close monitoring The patient's behavior, mood, sleep and appetite will be closely monitored. Patient enrolled in individual and group therapeutic sessions and encouraged to attend. Patient provided with a safe and structured environment. Patient's physical health needs will be addressed by the Hospitalist. Hospitalist Consulted Labs including CBC, CMP, Lipid profile and Hemoglobin A1C levels ordered for baseline reference Social Assessment will be completed and the Dental Assistant will work with patient and family to ensure a suitable and safe disposition Medication adjustment will be made as clinically indicated Continue home medications Continue Lamictal 50mg po daily Increased Seroquel to 150mg po QHS. yesterday The patient agreed to vince Klonopin and start Vistaril 25 mg po every 6 hours as needed for anxiety Usual Wellness Uatsdin/Preservation: - Start Trazodone 50 mg po QHS & 50 mg po QHS PRN between 10 PM & 2 AM for insomnia - Start Melatonin 5 mg po QHS to promote circadian rhythm The patient agreed on the treatment plan, understood the risk, benefit, alternative treatment, potential consequence of no treatment, and gave informed consent. Estimated days:4 Post hospital care: primary care provider, psychiatric provider Case staffed with Dr. Joseph Medications and Allergies Medications and Allergies Allergies Allergy/AdvReac Type Severity Reaction Status Date / Time No Known Allergies Allergy Unverified 03/07/21 15:09 Home Medications Medication Instructions Recorded Confirmed Last Taken Type Gabapentin 100 mg PO TID 03/08/21 03/08/21 03/08/21 16:00 History QUEtiapine [SEROquel] 100 mg PO QHS 03/08/21 03/08/21 Unknown History clonazePAM [KlonoPIN] 0.25 mg PO TID 03/08/21 03/08/21 03/08/21 16:00 History lamoTRIgine [LaMICtal] 25 mg PO QDAY 03/08/21 03/08/21 Unknown History Active Meds: Active Medications Acetaminophen (Acetaminophen 325 Mg Tab) 650 mg PO Q6H PRN PRN Reason: Pain, Mild (1-3) Last Admin: 03/13/21 13:43 Dose: 650 mg Documented by: Clonazepam (Clonazepam 0.5 Mg Tab) 0.25 mg PO BID [facility] Last Admin: 03/14/21 21:27 Dose: 0.25 mg Documented by: Gabapentin (Gabapentin 100 Mg Cap) 100 mg PO TID [facility] Last Admin: 03/14/21 20:42 Dose: 100 mg Documented by: Hydroxyzine Pamoate (Hydroxyzine Pamoate 25 Mg Cap) 25 mg PO Q6H PRN PRN Reason: Anxiety Last Admin: 03/14/21 22:17 Dose: 25 mg Documented by: Lamotrigine (Lamotrigine 25 Mg Tab) 50 mg PO DAILY [facility] Last Admin: 03/14/21 09:29 Dose: 50 mg Documented by: Quetiapine Fumarate (Quetiapine 100 Mg Tab) 100 mg PO QHS [facility] Last Admin: 03/14/21 21:27 Dose: 100 mg Documented by: Quetiapine Fumarate (Quetiapine 25 Mg Tab) 50 mg PO QHS [facility] Last Admin: 03/14/21 21:27 Dose: 50 mg Documented by: Results - Results Labs/Vitals: Laboratory Last Values WBC 5.9 K/mm3 (4.5-11.0) 03/09/21 10:01 RBC 4.68 M/mm3 (3.65-5.03) 03/09/21 10:01 Hgb 14.9 gm/dl (11.8-15.2) 03/09/21 10:01 Hct 42.9 % (35.5-45.6) 03/09/21 10:01 MCV 92 fl (84-94) 03/09/21 10:01 MCH 32 pg (28-32) 03/09/21 10:01 MCHC 35 % (32-34) H 03/09/21 10:01 RDW 13.1 % (13.2-15.2) L 03/09/21 10:01 Plt Count 207 K/mm3 (140-440) 03/09/21 10:01 Lymph % (Auto) 24.8 % (13.4-35.0) 03/09/21 10:01 [place] % (Auto) 11.1 % (0.0-7.3) H 03/09/21 10:01 Eos % (Auto) 1.9 % (0.0-4.3) 03/09/21 10:01 Baso % (Auto) 0.7 % (0.0-1.8) 03/09/21 10:01 Lymph # (Auto) 1.5 K/mm3 (1.2-5.4) 03/09/21 10:01 [place] # (Auto) 0.7 K/mm3 (0.0-0.8) 03/09/21 10:01 Eos # (Auto) 0.1 K/mm3 (0.0-0.4) 03/09/21 10:01 Baso # (Auto) 0.0 K/mm3 (0.0-0.1) 03/09/21 10:01 Seg Neutrophils % 61.5 % (40.0-70.0) 03/09/21 10:01 Seg Neutrophils # 3.6 K/mm3 (1.8-7.7) 03/09/21 10:01 Sodium 140 mmol/L (137-145) 03/09/21 10:01 Potassium 4.1 mmol/L (3.6-5.0) 03/09/21 10:01 Chloride 103.8 mmol/L (98-107) 03/09/21 10:01 Carbon Dioxide 29 mmol/L (22-30) 03/09/21 10:01 Anion Gap 11 mmol/L 03/09/21 10:01 BUN 19 mg/dL (9-20) 03/09/21 10:01 Creatinine 1.1 mg/dL (0.8-1.3) 03/09/21 10:01 Estimated GFR > 60 ml/min 03/09/21 10:01 BUN/Creatinine Ratio 17 % 03/09/21 10:01 Glucose 83 mg/dL (75-100) 03/09/21 10:01 POC Glucose 106 mg/dL (70-105) H 03/08/21 18:32 Hemoglobin A1c 5.4 % (4-6) 03/09/21 10:01 Calcium 9.6 mg/dL (8.4-10.2) 03/09/21 10:01 Total Bilirubin 0.60 mg/dL (0.1-1.2) 03/09/21 10:01 AST 19 units/L (5-40) 03/09/21 10:01 ALT 34 units/L (7-56) 03/09/21 10:01 Alkaline Phosphatase 49 units/L (35-129) 03/09/21 10:01 Total Protein 6.5 g/dL (6.3-8.2) 03/09/21 10:01 Albumin 4.2 g/dL (3.9-5) 03/09/21 10:01 Albumin/Globulin Ratio 1.8 % 03/09/21 10:01 Triglycerides 209 mg/dL (2-149) H 03/09/21 10:01 Cholesterol 142 mg/dL (50-199) 03/09/21 10:01 LDL Cholesterol Direct 99 mg/dL (50-130) 03/09/21 10:01 HDL Cholesterol 33 mg/dL (40-59) L 03/09/21 10:01 Cholesterol/HDL Ratio 4.30 % 03/09/21 10:01 TSH 0.501 mlU/mL (0.270-4.200) 03/09/21 10:01 Last Vital Signs Temp 98.9 F 03/14/21 19:37 Pulse 59 L 03/14/21 19:37 Resp 16 03/14/21 19:37 BP 128/78 03/14/21 19:37 Pulse Ox 98 03/14/21 19:37
[2021-03-15] MEDS: GABAPENTIN 100 MG CAP PO SCH ×3 (09:23→21:20)
[2021-03-15] MEDS: lamoTRIgine 25 MG TAB PO SCH (09:23)
[2021-03-15] MEDS: clonazePAM 0.5 MG TAB PO SCH ×2 (09:23→21:21)
[2021-03-15] MEDS: hydrOXYzine PAMOATE 25 MG CAP PO PRN ×2 (10:32→21:21)
[2021-03-15] MEDS: ACETAMINOPHEN 325 MG TAB PO PRN (10:32)
[2021-03-15] MEDS: QUEtiapine 25 MG TAB PO SCH (21:20)
[2021-03-15] MEDS: QUEtiapine 100 MG TAB PO SCH (21:20)
--- NOTE | 2021-03-16 08:06 | Progress Note ---
Subjective Date of service: 03/16/21 Principal diagnosis: schizophrenia Subjective Comment: 03/10/2021: The patient was seen eating breakfast, he reports doing well. He reports sleep as fair and appetite as good. He denies any current suicidal/homicidal ideation and denies hallucinations. Per nurse, the patient had a quiet night. No changes made today. 03/11/2021: The patient reports feeling better, but continues to have intermittent suicidal ideation. He states that he is worried about placement post discharge. He reports sleep as fair and appetite as good. He denies any current suicidal/homicidal ideation and denies hallucinations. Per nurse, the patient had a quiet night. Start lamictal 50mg po daily. 03/12/2021: The patient continues to endorse depression but states that it is improving. He reports sleep as fair and appetite as good. He denies any current suicidal/homicidal ideation and denies hallucinations. Per nurse, the patient had a quiet night. Per nurse the patient had a quiet night. Increased Seroquel to 150mg po QHS. 03/13/2021: The patient reports that he is doing better. He reports sleep as fair and appetite as good. He denies any current suicidal/homicidal ideation and denies hallucinations. Per nurse, the patient had a quiet night. Per nurse the patient had a quiet night. Will initiate Klonopin vince, patient was advised to request for Vistaril as a breakthrough. 03/14/2021: The patient was seen today. He is sleeping but easily arouses. He denies suicidal thoughts at present but states he was yesterday. He denies hallucination of any kind. He says he slept well and his appetite is fair. 03/15/2021: The patient was seen eating breakfast. He reports doing well on Klonopin tapering. He reports sleep as fair and appetite as good. He denies any current suicidal/homicidal ideation and denies hallucinations. Per nurse, the patient had a quiet night. Per nurse the patient had a quiet night. 03/16/2021: The patient reports doing well. He reports being worried about placement. No complications with Klonopin tapering. He reports sleep as fair and appetite as good. He denies any current suicidal/homicidal ideation and denies hallucinations. Per nurse, the patient had a quiet night. Per nurse the patient had a quiet night. REVIEW OF SYSTEMS Constitutional: Negative for weight loss ENT: Negative for stridor Respiratory: Negative for cough or hemoptysis All other systems reviewed and are negative MENTAL STATUS EXAMINATION General Appearance and Behavior: Age appropriate, good hygiene, wearing appropriate clothes, calm and cooperative polite with questioning. Cooperation: engaged Psychomotor Behavior: Psychomotor normal Mood: " good" Affect and affective range: congruent with stated mood Thought Process: goal directed Thought Content: Not SI Speech: Normal volume, Regular rate and rhythm, Suicidal Ideation: Denies Homicidal Ideation: Denies Hallucinations: Denies Delusions: None elicited Impulse Control: Questionable Insight and Judgment: Limited Memory: Limited Attention: attentive Orientation: a/o Assessment and Plan (1)Schizophrenia Treatment Plan Patient admitted for inpatient psychiatric evaluation, medication adjustment and close monitoring The patient's behavior, mood, sleep and appetite will be closely monitored. Patient enrolled in individual and group therapeutic sessions and encouraged to attend. Patient provided with a safe and structured environment. Patient's physical health needs will be addressed by the Hospitalist. Hospitalist Consulted Labs including CBC, CMP, Lipid profile and Hemoglobin A1C levels ordered for baseline reference Social Assessment will be completed and the Irrigating Pump Operator will work with patient and family to ensure a suitable and safe disposition Medication adjustment will be made as clinically indicated Continue home medications Continue Lamictal 50mg po daily Continue Seroquel to 150mg po QHS. yesterday Continue Klonopin tapering- Ends 03/17/2021 The patient agreed to taper Klonopin and start Vistaril 25 mg po every 6 hours as needed for anxiety Usual Wellness Mandaen/Preservation: - Start Trazodone 50 mg po QHS & 50 mg po QHS PRN between 10 PM & 2 AM for insomnia - Start Melatonin 5 mg po QHS to promote circadian rhythm The patient agreed on the treatment plan, understood the risk, benefit, alternative treatment, potential consequence of no treatment, and gave informed consent. Estimated days:4 Post hospital care: primary care provider, psychiatric provider Case staffed with Dr. Joseph Medications and Allergies Medications and Allergies Allergies Allergy/AdvReac Type Severity Reaction Status Date / Time No Known Allergies Allergy Unverified 03/07/21 15:09 Home Medications Medication Instructions Recorded Confirmed Last Taken Type Gabapentin 100 mg PO TID 03/08/21 03/08/21 03/08/21 16:00 History QUEtiapine [SEROquel] 100 mg PO QHS 03/08/21 03/08/21 Unknown History clonazePAM [KlonoPIN] 0.25 mg PO TID 03/08/21 03/08/21 03/08/21 16:00 History lamoTRIgine [LaMICtal] 25 mg PO QDAY 03/08/21 03/08/21 Unknown History Active Meds: Active Medications Acetaminophen (Acetaminophen 325 Mg Tab) 650 mg PO Q6H PRN PRN Reason: Pain, Mild (1-3) Last Admin: 03/15/21 10:32 Dose: 650 mg Documented by: Clonazepam (Clonazepam 0.5 Mg Tab) 0.25 mg PO ONCE ONE Stop: 03/16/21 08:01 Clonazepam (Clonazepam 0.5 Mg Tab) 0.25 mg PO ONCE ONE Stop: 03/17/21 08:01 Gabapentin (Gabapentin 100 Mg Cap) 100 mg PO TID [facility] Last Admin: 03/15/21 21:20 Dose: 100 mg Documented by: Hydroxyzine Pamoate (Hydroxyzine Pamoate 25 Mg Cap) 25 mg PO Q6H PRN PRN Reason: Anxiety Last Admin: 03/15/21 21:21 Dose: 25 mg Documented by: Lamotrigine (Lamotrigine 25 Mg Tab) 50 mg PO DAILY [facility] Last Admin: 03/15/21 09:23 Dose: 50 mg Documented by: Quetiapine Fumarate (Quetiapine 100 Mg Tab) 100 mg PO QHS [facility] Last Admin: 03/15/21 21:20 Dose: 100 mg Documented by: Quetiapine Fumarate (Quetiapine 25 Mg Tab) 50 mg PO QHS [facility] Last Admin: 03/15/21 21:20 Dose: 50 mg Documented by: Results - Results Labs/Vitals: Laboratory Last Values WBC 5.9 K/mm3 (4.5-11.0) 03/09/21 10:01 RBC 4.68 M/mm3 (3.65-5.03) 03/09/21 10:01 Hgb 14.9 gm/dl (11.8-15.2) 03/09/21 10:01 Hct 42.9 % (35.5-45.6) 03/09/21 10:01 MCV 92 fl (84-94) 03/09/21 10:01 MCH 32 pg (28-32) 03/09/21 10:01 MCHC 35 % (32-34) H 03/09/21 10:01 RDW 13.1 % (13.2-15.2) L 03/09/21 10:01 Plt Count 207 K/mm3 (140-440) 03/09/21 10:01 Lymph % (Auto) 24.8 % (13.4-35.0) 03/09/21 10:01 [place] % (Auto) 11.1 % (0.0-7.3) H 03/09/21 10:01 Eos % (Auto) 1.9 % (0.0-4.3) 03/09/21 10:01 Baso % (Auto) 0.7 % (0.0-1.8) 03/09/21 10:01 Lymph # (Auto) 1.5 K/mm3 (1.2-5.4) 03/09/21 10:01 [place] # (Auto) 0.7 K/mm3 (0.0-0.8) 03/09/21 10:01 Eos # (Auto) 0.1 K/mm3 (0.0-0.4) 03/09/21 10:01 Baso # (Auto) 0.0 K/mm3 (0.0-0.1) 03/09/21 10:01 Seg Neutrophils % 61.5 % (40.0-70.0) 03/09/21 10:01 Seg Neutrophils # 3.6 K/mm3 (1.8-7.7) 03/09/21 10:01 Sodium 140 mmol/L (137-145) 03/09/21 10:01 Potassium 4.1 mmol/L (3.6-5.0) 03/09/21 10:01 Chloride 103.8 mmol/L (98-107) 03/09/21 10:01 Carbon Dioxide 29 mmol/L (22-30) 03/09/21 10:01 Anion Gap 11 mmol/L 03/09/21 10:01 BUN 19 mg/dL (9-20) 03/09/21 10:01 Creatinine 1.1 mg/dL (0.8-1.3) 03/09/21 10:01 Estimated GFR > 60 ml/min 03/09/21 10:01 BUN/Creatinine Ratio 17 % 08/20/21 10:01 Glucose 83 mg/dL (75-100) 03/09/21 10:01 POC Glucose 106 mg/dL (70-105) H 03/08/21 18:32 Hemoglobin A1c 5.4 % (4-6) 03/09/21 10:01 Calcium 9.6 mg/dL (8.4-10.2) 03/09/21 10:01 Total Bilirubin 0.60 mg/dL (0.1-1.2) 03/09/21 10:01 AST 19 units/L (5-40) 03/09/21 10:01 ALT 34 units/L (7-56) 03/09/21 10:01 Alkaline Phosphatase 49 units/L (35-129) 03/09/21 10:01 Total Protein 6.5 g/dL (6.3-8.2) 03/09/21 10:01 Albumin 4.2 g/dL (3.9-5) 03/09/21 10:01 Albumin/Globulin Ratio 1.8 % 03/09/21 10:01 Triglycerides 209 mg/dL (2-149) H 03/09/21 10:01 Cholesterol 142 mg/dL (50-199) 03/09/21 10:01 LDL Cholesterol Direct 99 mg/dL (50-130) 03/09/21 10:01 HDL Cholesterol 33 mg/dL (40-59) L 03/09/21 10:01 Cholesterol/HDL Ratio 4.30 % 03/09/21 10:01 TSH 0.501 mlU/mL (0.270-4.200) 03/09/21 10:01 Last Vital Signs Temp 98.9 F 03/15/21 19:24 Pulse 71 03/15/21 19:24 Resp 18 03/15/21 19:24 BP 137/78 03/15/21 19:24 Pulse Ox 95 03/15/21 19:24
[2021-03-16] MEDS ORDERED: clonazePAM 0.5 MG TAB PO SCH (09:30)
[2021-03-16] MEDS: lamoTRIgine 25 MG TAB PO SCH (10:05)
[2021-03-16] MEDS: GABAPENTIN 100 MG CAP PO SCH ×3 (10:05→21:06)
--- NOTE | 2021-03-16 19:30 | XRay Report ---
CHEST 1 VIEW 03/16/2021 6:25 PM INDICATION / CLINICAL INFORMATION: placement. COMPARISON: None available. FINDINGS: SUPPORT DEVICES: None. HEART / MEDIASTINUM: No significant abnormality. LUNGS / PLEURA: No significant pulmonary or pleural abnormality. No pneumothorax. ADDITIONAL FINDINGS: No significant additional findings. IMPRESSION: 1. No acute findings. Signer Name: Mazin Thacker MD Signed: 03/16/2021 7:26 PM Workstation Name: [id number]
[2021-03-16] MEDS: hydrOXYzine PAMOATE 25 MG CAP PO PRN (21:06)
[2021-03-16] MEDS: QUEtiapine 25 MG TAB PO SCH (21:08)
[2021-03-16] MEDS: QUEtiapine 100 MG TAB PO SCH (21:08)
[2021-03-17] MEDS ORDERED: clonazePAM 0.5 MG TAB PO SCH (08:00)
--- NOTE | 2021-03-17 09:14 | Progress Note ---
Subjective Date of service: 03/17/21 Principal diagnosis: schizophrenia Subjective Comment: The patient was seen today. He is sleeping but easily arouses. He denies SI/HI. He also denies halluciantions of any kind. The patient is awaiting assistance for placement in [place]. Will discuss with the and plan to discharge safely. REVIEW OF SYSTEMS Constitutional: Negative for weight loss ENT: Negative for stridor Respiratory: Negative for cough or hemoptysis All other systems reviewed and are negative MENTAL STATUS EXAMINATION General Appearance and Behavior: Age appropriate, good hygiene, wearing appropriate clothes, calm and cooperative polite with questioning. Cooperation: engaged Psychomotor Behavior: Psychomotor normal Mood: depressed Affect and affective range: congruent with stated mood Thought Process: goal directed Thought Content: Not SI Speech: Normal volume, Regular rate and rhythm, Suicidal Ideation: Denies Homicidal Ideation: Denies Hallucinations: Denies Delusions: None elicited Impulse Control: Questionable Insight and Judgment: Limited Memory: Limited Attention: attentive Orientation: a/o Assessment and Plan (1)Schizophrenia Treatment Plan Patient admitted for inpatient psychiatric evaluation, medication adjustment and close monitoring The patient's behavior, mood, sleep and appetite will be closely monitored. Patient enrolled in individual and group therapeutic sessions and encouraged to attend. Patient provided with a safe and structured environment. Patient's physical health needs will be addressed by the Hospitalist. Hospitalist Consulted Labs including CBC, CMP, Lipid profile and Hemoglobin A1C levels ordered for baseline reference Social Assessment will be completed and the Field Support Engineer will work with patient and family to ensure a suitable and safe disposition Medication adjustment will be made as clinically indicated No changes made today The patient agreed to vince Klonopin and start Vistaril 25 mg po every 6 hours as needed for anxiety Usual Wellness Taoism/Preservation: - Start Trazodone 50 mg po QHS & 50 mg po QHS PRN between 10 PM & 2 AM for insomnia - Start Melatonin 5 mg po QHS to promote circadian rhythm The patient agreed on the treatment plan, understood the risk, benefit, alternative treatment, potential consequence of no treatment, and gave informed consent. Estimated days:4 Post hospital care: primary care provider, psychiatric provider Case staffed with Dr. Joseph Medications and Allergies Allergies Allergy/AdvReac Type Severity Reaction Status Date / Time No Known Allergies Allergy Unverified 03/07/21 15:09 Home Medications Medication Instructions Recorded Confirmed Last Taken Type Gabapentin 100 mg PO TID 03/08/21 03/08/21 03/08/21 16:00 History QUEtiapine [SEROquel] 100 mg PO QHS 03/08/21 03/08/21 Unknown History clonazePAM [KlonoPIN] 0.25 mg PO TID 03/08/21 03/08/21 03/08/21 16:00 History lamoTRIgine [LaMICtal] 25 mg PO QDAY 03/08/21 03/08/21 Unknown History Active Meds: Active Medications Acetaminophen (Acetaminophen 325 Mg Tab) 650 mg PO Q6H PRN PRN Reason: Pain, Mild (1-3) Last Admin: 03/15/21 10:32 Dose: 650 mg Documented by: Clonazepam (Clonazepam 0.5 Mg Tab) 0.25 mg PO ONCE [facility] Stop: 03/17/21 12:00 Gabapentin (Gabapentin 100 Mg Cap) 100 mg PO TID [facility] Last Admin: 03/16/21 21:06 Dose: 100 mg Documented by: Hydroxyzine Pamoate (Hydroxyzine Pamoate 25 Mg Cap) 25 mg PO Q6H PRN PRN Reason: Anxiety Last Admin: 03/16/21 21:06 Dose: 25 mg Documented by: Lamotrigine (Lamotrigine 25 Mg Tab) 50 mg PO DAILY [facility] Last Admin: 03/16/21 10:05 Dose: 50 mg Documented by: Quetiapine Fumarate (Quetiapine 100 Mg Tab) 100 mg PO QHS [facility] Last Admin: 03/16/21 21:08 Dose: 100 mg Documented by: Quetiapine Fumarate (Quetiapine 25 Mg Tab) 50 mg PO QHS [facility] Last Admin: 03/16/21 21:08 Dose: 50 mg Documented by: Results - Results Labs/Vitals: Laboratory Last Values WBC 5.9 K/mm3 (4.5-11.0) 03/09/21 10:01 RBC 4.68 M/mm3 (3.65-5.03) 03/09/21 10:01 Hgb 14.9 gm/dl (11.8-15.2) 03/09/21 10:01 Hct 42.9 % (35.5-45.6) 03/09/21 10:01 MCV 92 fl (84-94) 03/09/21 10:01 MCH 32 pg (28-32) 03/09/21 10:01 MCHC 35 % (32-34) H 03/09/21 10:01 RDW 13.1 % (13.2-15.2) L 03/09/21 10:01 Plt Count 207 K/mm3 (140-440) 03/09/21 10:01 Lymph % (Auto) 24.8 % (13.4-35.0) 03/09/21 10:01 [place] % (Auto) 11.1 % (0.0-7.3) H 03/09/21 10:01 Eos % (Auto) 1.9 % (0.0-4.3) 03/09/21 10:01 Baso % (Auto) 0.7 % (0.0-1.8) 03/09/21 10:01 Lymph # (Auto) 1.5 K/mm3 (1.2-5.4) 03/09/21 10:01 [place] # (Auto) 0.7 K/mm3 (0.0-0.8) 03/09/21 10:01 Eos # (Auto) 0.1 K/mm3 (0.0-0.4) 03/09/21 10:01 Baso # (Auto) 0.0 K/mm3 (0.0-0.1) 03/09/21 10:01 Seg Neutrophils % 61.5 % (40.0-70.0) 03/09/21 10:01 Seg Neutrophils # 3.6 K/mm3 (1.8-7.7) 03/09/21 10:01 Sodium 140 mmol/L (137-145) 03/09/21 10:01 Potassium 4.1 mmol/L (3.6-5.0) 03/09/21 10:01 Chloride 103.8 mmol/L (98-107) 03/09/21 10:01 Carbon Dioxide 29 mmol/L (22-30) 03/09/21 10:01 Anion Gap 11 mmol/L 03/09/21 10:01 BUN 19 mg/dL (9-20) 03/09/21 10:01 Creatinine 1.1 mg/dL (0.8-1.3) 03/09/21 10:01 Estimated GFR > 60 ml/min 03/09/21 10:01 BUN/Creatinine Ratio 17 % 03/09/21 10:01 Glucose 83 mg/dL (75-100) 03/09/21 10:01 POC Glucose 106 mg/dL (70-105) H 03/08/21 18:32 Hemoglobin A1c 5.4 % (4-6) 03/09/21 10:01 Calcium 9.6 mg/dL (8.4-10.2) 03/09/21 10:01 Total Bilirubin 0.60 mg/dL (0.1-1.2) 03/09/21 10:01 AST 19 units/L (5-40) 03/09/21 10:01 ALT 34 units/L (7-56) 03/09/21 10:01 Alkaline Phosphatase 49 units/L (35-129) 03/09/21 10:01 Total Protein 6.5 g/dL (6.3-8.2) 03/09/21 10:01 Albumin 4.2 g/dL (3.9-5) 03/09/21 10:01 Albumin/Globulin Ratio 1.8 % 03/09/21 10:01 Triglycerides 209 mg/dL (2-149) H 03/09/21 10:01 Cholesterol 142 mg/dL (50-199) 03/09/21 10:01 LDL Cholesterol Direct 99 mg/dL (50-130) 03/09/21 10:01 HDL Cholesterol 33 mg/dL (40-59) L 03/09/21 10:01 Cholesterol/HDL Ratio 4.30 % 03/09/21 10:01 TSH 0.501 mlU/mL (0.270-4.200) 03/09/21 10:01 Syphilis IgG Antibody Nonreactive (NonReactive) 03/16/21 19:48 Last Vital Signs Temp 98.8 F 03/16/21 19:31 Pulse 60 03/16/21 19:31 Resp 16 03/16/21 19:31 BP 134/86 03/16/21 19:31 Pulse Ox 95 03/16/21 19:31
[2021-03-17] MEDS: lamoTRIgine 25 MG TAB PO SCH (09:17)
[2021-03-17] MEDS: GABAPENTIN 100 MG CAP PO SCH ×3 (09:17→20:25)
[2021-03-17] MEDS: ACETAMINOPHEN 325 MG TAB PO PRN (11:11)
[2021-03-17] MEDS: hydrOXYzine PAMOATE 25 MG CAP PO PRN ×2 (11:11→20:25)
[2021-03-17] MEDS: QUEtiapine 100 MG TAB PO SCH (21:06)
[2021-03-17] MEDS: QUEtiapine 25 MG TAB PO SCH (21:07)
[2021-03-18] MEDS: GABAPENTIN 100 MG CAP PO SCH ×3 (08:33→20:34)
[2021-03-18] MEDS: ACETAMINOPHEN 325 MG TAB PO PRN ×2 (08:34→17:13)
[2021-03-18] MEDS: hydrOXYzine PAMOATE 25 MG CAP PO PRN ×2 (08:34→17:14)
[2021-03-18] MEDS: lamoTRIgine 25 MG TAB PO SCH (09:11)
--- NOTE | 2021-03-18 09:25 | Progress Note ---
Subjective Date of service: 03/18/21 Principal diagnosis: schizophrenia Subjective Comment: The patient was seen today. He is awake, a/o x 3. He has an open wound his neck that he says is skin cancer. The area is oozing. He says it's been there for awhile but has never oozed before. He is concerned about it. The patient denies SI/HI at present, but states he has thoughts "on and off." He denies hallucinations. The patient also c/o of a headache. Discussed with the on duty nurse about the patient's concerns and instructed him to place a call to the hospitalist to have a look at the patient. Reason for continued inpatient treatment: The patient is clear from a psych standpoint. The SW is working with the patient's mother on getting him placed somewhere in [place]. REVIEW OF SYSTEMS Constitutional: Negative for weight loss ENT: Negative for stridor Respiratory: Negative for cough or hemoptysis All other systems reviewed and are negative MENTAL STATUS EXAMINATION General Appearance and Behavior: Age appropriate, good hygiene, wearing appropriate clothes, calm and cooperative polite with questioning. Cooperation: engaged Psychomotor Behavior: Psychomotor normal Mood: depressed Affect and affective range: congruent with stated mood Thought Process: goal directed Thought Content: Not SI Speech: Normal volume, Regular rate and rhythm, Suicidal Ideation: Denies Homicidal Ideation: Denies Hallucinations: Denies Delusions: None elicited Impulse Control: Questionable Insight and Judgment: Limited Memory: Limited Attention: attentive Orientation: a/o Assessment and Plan (1)Schizophrenia Treatment Plan Patient admitted for inpatient psychiatric evaluation, medication adjustment and close monitoring The patient's behavior, mood, sleep and appetite will be closely monitored. Patient enrolled in individual and group therapeutic sessions and encouraged to attend. Patient provided with a safe and structured environment. Patient's physical health needs will be addressed by the Hospitalist. Hospitalist Consulted Labs including CBC, CMP, Lipid profile and Hemoglobin A1C levels ordered for baseline reference Social Assessment will be completed and the Strategic Marketing Specialist will work with patient and family to ensure a suitable and safe disposition Medication adjustment will be made as clinically indicated No changes made today The patient agreed to vince Klonopin and start Vistaril 25 mg po every 6 hours as needed for anxiety Usual Wellness Anglican/Preservation: - Start Trazodone 50 mg po QHS & 50 mg po QHS PRN between 10 PM & 2 AM for insomnia - Start Melatonin 5 mg po QHS to promote circadian rhythm The patient agreed on the treatment plan, understood the risk, benefit, alternative treatment, potential consequence of no treatment, and gave informed consent. Estimated days:4 Post hospital care: primary care provider, psychiatric provider Case staffed with Dr. Joseph Medications and Allergies Allergies Allergy/AdvReac Type Severity Reaction Status Date / Time No Known Allergies Allergy Unverified 03/07/21 15:09 Home Medications Medication Instructions Recorded Confirmed Last Taken Type Gabapentin 100 mg PO TID 03/08/21 03/08/21 03/08/21 16:00 History QUEtiapine [SEROquel] 100 mg PO QHS 03/08/21 03/08/21 Unknown History clonazePAM [KlonoPIN] 0.25 mg PO TID 03/08/21 03/08/21 03/08/21 16:00 History lamoTRIgine [LaMICtal] 25 mg PO QDAY 03/08/21 03/08/21 Unknown History Active Meds: Active Medications Acetaminophen (Acetaminophen 325 Mg Tab) 650 mg PO Q6H PRN PRN Reason: Pain, Mild (1-3) Last Admin: 03/18/21 08:34 Dose: 650 mg Documented by: Gabapentin (Gabapentin 100 Mg Cap) 100 mg PO TID [facility] Last Admin: 03/18/21 08:33 Dose: 100 mg Documented by: Hydroxyzine Pamoate (Hydroxyzine Pamoate 25 Mg Cap) 25 mg PO Q6H PRN PRN Reason: Anxiety Last Admin: 03/18/21 08:34 Dose: 25 mg Documented by: Lamotrigine (Lamotrigine 25 Mg Tab) 50 mg PO DAILY [facility] Last Admin: 03/18/21 09:11 Dose: 50 mg Documented by: Quetiapine Fumarate (Quetiapine 100 Mg Tab) 100 mg PO QHS [facility] Last Admin: 03/17/21 21:06 Dose: 100 mg Documented by: Quetiapine Fumarate (Quetiapine 25 Mg Tab) 50 mg PO QHS [facility] Last Admin: 03/17/21 21:07 Dose: 50 mg Documented by: Results - Results Labs/Vitals: Laboratory Last Values WBC 5.9 K/mm3 (4.5-11.0) 03/09/21 10:01 RBC 4.68 M/mm3 (3.65-5.03) 03/09/21 10:01 Hgb 14.9 gm/dl (11.8-15.2) 03/09/21 10:01 Hct 42.9 % (35.5-45.6) 03/09/21 10:01 MCV 92 fl (84-94) 03/09/21 10:01 MCH 32 pg (28-32) 03/09/21 10:01 MCHC 35 % (32-34) H 03/09/21 10:01 RDW 13.1 % (13.2-15.2) L 03/09/21 10:01 Plt Count 207 K/mm3 (140-440) 03/09/21 10:01 Lymph % (Auto) 24.8 % (13.4-35.0) 03/09/21 10:01 [place] % (Auto) 11.1 % (0.0-7.3) H 03/09/21 10:01 Eos % (Auto) 1.9 % (0.0-4.3) 03/09/21 10:01 Baso % (Auto) 0.7 % (0.0-1.8) 03/09/21 10:01 Lymph # (Auto) 1.5 K/mm3 (1.2-5.4) 03/09/21 10:01 [place] # (Auto) 0.7 K/mm3 (0.0-0.8) 03/09/21 10:01 Eos # (Auto) 0.1 K/mm3 (0.0-0.4) 03/09/21 10:01 Baso # (Auto) 0.0 K/mm3 (0.0-0.1) 03/09/21 10:01 Seg Neutrophils % 61.5 % (40.0-70.0) 03/09/21 10:01 Seg Neutrophils # 3.6 K/mm3 (1.8-7.7) 03/09/21 10:01 Sodium 140 mmol/L (137-145) 03/09/21 10:01 Potassium 4.1 mmol/L (3.6-5.0) 03/09/21 10:01 Chloride 103.8 mmol/L (98-107) 03/09/21 10:01 Carbon Dioxide 29 mmol/L (22-30) 03/09/21 10:01 Anion Gap 11 mmol/L 03/09/21 10:01 BUN 19 mg/dL (9-20) 03/09/21 10:01 Creatinine 1.1 mg/dL (0.8-1.3) 03/09/21 10:01 Estimated GFR > 60 ml/min 03/09/21 10:01 BUN/Creatinine Ratio 17 % 03/09/21 10:01 Glucose 83 mg/dL (75-100) 03/09/21 10:01 POC Glucose 106 mg/dL (70-105) H 03/08/21 18:32 Hemoglobin A1c 5.4 % (4-6) 03/09/21 10:01 Calcium 9.6 mg/dL (8.4-10.2) 03/09/21 10:01 Total Bilirubin 0.60 mg/dL (0.1-1.2) 03/09/21 10:01 AST 19 units/L (5-40) 03/09/21 10:01 ALT 34 units/L (7-56) 03/09/21 10:01 Alkaline Phosphatase 49 units/L (35-129) 03/09/21 10:01 Total Protein 6.5 g/dL (6.3-8.2) 03/09/21 10:01 Albumin 4.2 g/dL (3.9-5) 03/09/21 10:01 Albumin/Globulin Ratio 1.8 % 03/09/21 10:01 Triglycerides 209 mg/dL (2-149) H 03/09/21 10:01 Cholesterol 142 mg/dL (50-199) 03/09/21 10:01 LDL Cholesterol Direct 99 mg/dL (50-130) 03/09/21 10:01 HDL Cholesterol 33 mg/dL (40-59) L 03/09/21 10:01 Cholesterol/HDL Ratio 4.30 % 03/09/21 10:01 TSH 0.501 mlU/mL (0.270-4.200) 03/09/21 10:01 Syphilis IgG Antibody Nonreactive (NonReactive) 03/16/21 19:48 Last Vital Signs Temp 98.7 F 03/17/21 19:12 Pulse 59 L 03/17/21 19:12 Resp 18 03/17/21 19:12 BP 130/80 03/17/21 19:12 Pulse Ox 97 03/17/21 19:12
[2021-03-18] MEDS: QUEtiapine 25 MG TAB PO SCH (21:10)
[2021-03-18] MEDS: QUEtiapine 100 MG TAB PO SCH (21:10)
[2021-03-19] MEDS: GABAPENTIN 100 MG CAP PO SCH ×3 (09:15→21:07)
[2021-03-19] MEDS: hydrOXYzine PAMOATE 25 MG CAP PO PRN ×2 (09:16→21:05)
[2021-03-19] MEDS: ACETAMINOPHEN 325 MG TAB PO PRN (09:16)
[2021-03-19] MEDS: lamoTRIgine 25 MG TAB PO SCH (09:16)
--- NOTE | 2021-03-19 10:26 | Progress Note ---
Subjective Date of service: 03/19/21 Principal diagnosis: schizophrenia Subjective Comment: The patient was seen today. He is awake, a/o x 3. He is calm and cooperative. He denies SI/HI or hallucinations of any kind. He is concerned about his living situation. He says he needs a bus ticket back to [place], because he states he has no ID or cell phone. I spoke with the patient's mother who states she can not afford to purchase him a bus ticket. She says he is welcome to live with her. Reason for continued inpatient treatment: The patient is clear from a psych standpoint. He will discharge tomorrow once the SW is here and can set up out patient resources. REVIEW OF SYSTEMS Constitutional: Negative for weight loss ENT: Negative for stridor Respiratory: Negative for cough or hemoptysis All other systems reviewed and are negative MENTAL STATUS EXAMINATION General Appearance and Behavior: Age appropriate, good hygiene, wearing appropriate clothes, calm and cooperative polite with questioning. Cooperation: engaged Psychomotor Behavior: Psychomotor normal Mood: depressed Affect and affective range: congruent with stated mood Thought Process: goal directed Thought Content: Not SI Speech: Normal volume, Regular rate and rhythm, Suicidal Ideation: Denies Homicidal Ideation: Denies Hallucinations: Denies Delusions: None elicited Impulse Control: Questionable Insight and Judgment: Limited Memory: Limited Attention: attentive Orientation: a/o Assessment and Plan (1)Schizophrenia Treatment Plan Patient admitted for inpatient psychiatric evaluation, medication adjustment and close monitoring The patient's behavior, mood, sleep and appetite will be closely monitored. Patient enrolled in individual and group therapeutic sessions and encouraged to attend. Patient provided with a safe and structured environment. Patient's physical health needs will be addressed by the Hospitalist. Hospitalist Consulted Labs including CBC, CMP, Lipid profile and Hemoglobin A1C levels ordered for baseline reference Social Assessment will be completed and the [facility] will work with patient and family to ensure a suitable and safe disposition Medication adjustment will be made as clinically indicated No changes made today The patient agreed to vince Klonopin and start Vistaril 25 mg po every 6 hours as needed for anxiety Usual Wellness Alevism/Preservation: - Start Trazodone 50 mg po QHS & 50 mg po QHS PRN between 10 PM & 2 AM for insomnia - Start Melatonin 5 mg po QHS to promote circadian rhythm The patient agreed on the treatment plan, understood the risk, benefit, alternative treatment, potential consequence of no treatment, and gave informed consent. Estimated days:4 Post hospital care: primary care provider, psychiatric provider Case staffed with Dr. Joseph Medications and Allergies Allergies Allergy/AdvReac Type Severity Reaction Status Date / Time No Known Allergies Allergy Unverified 03/07/21 15:09 Home Medications Medication Instructions Recorded Confirmed Last Taken Type Gabapentin 100 mg PO TID 03/08/21 03/08/21 03/08/21 16:00 History QUEtiapine [SEROquel] 100 mg PO QHS 03/08/21 03/08/21 Unknown History clonazePAM [KlonoPIN] 0.25 mg PO TID 03/08/21 03/08/21 03/08/21 16:00 History lamoTRIgine [LaMICtal] 25 mg PO QDAY 03/08/21 03/08/21 Unknown History Active Meds: Active Medications Acetaminophen (Acetaminophen 325 Mg Tab) 650 mg PO Q6H PRN PRN Reason: Pain, Mild (1-3) Last Admin: 03/19/21 09:16 Dose: 650 mg Documented by: Gabapentin (Gabapentin 100 Mg Cap) 100 mg PO TID [facility] Last Admin: 03/19/21 09:15 Dose: 100 mg Documented by: Hydroxyzine Pamoate (Hydroxyzine Pamoate 25 Mg Cap) 25 mg PO Q6H PRN PRN Reason: Anxiety Last Admin: 03/19/21 09:16 Dose: 25 mg Documented by: Lamotrigine (Lamotrigine 25 Mg Tab) 50 mg PO DAILY [facility] Last Admin: 03/19/21 09:16 Dose: 50 mg Documented by: Quetiapine Fumarate (Quetiapine 100 Mg Tab) 100 mg PO QHS [facility] Last Admin: 03/18/21 21:10 Dose: 100 mg Documented by: Quetiapine Fumarate (Quetiapine 25 Mg Tab) 50 mg PO QHS [facility] Last Admin: 03/18/21 21:10 Dose: 50 mg Documented by: Results - Results Labs/Vitals: Laboratory Last Values WBC 5.9 K/mm3 (4.5-11.0) 03/09/21 10:01 RBC 4.68 M/mm3 (3.65-5.03) 03/09/21 10:01 Hgb 14.9 gm/dl (11.8-15.2) 03/09/21 10:01 Hct 42.9 % (35.5-45.6) 03/09/21 10:01 MCV 92 fl (84-94) 03/09/21 10:01 MCH 32 pg (28-32) 03/09/21 10:01 MCHC 35 % (32-34) H 03/09/21 10:01 RDW 13.1 % (13.2-15.2) L 03/09/21 10:01 Plt Count 207 K/mm3 (140-440) 03/09/21 10:01 Lymph % (Auto) 24.8 % (13.4-35.0) 03/09/21 10:01 [facility] % (Auto) 11.1 % (0.0-7.3) H 03/09/21 10:01 Eos % (Auto) 1.9 % (0.0-4.3) 03/09/21 10:01 Baso % (Auto) 0.7 % (0.0-1.8) 03/09/21 10:01 Lymph # (Auto) 1.5 K/mm3 (1.2-5.4) 03/09/21 10:01 [facility] # (Auto) 0.7 K/mm3 (0.0-0.8) 03/09/21 10:01 Eos # (Auto) 0.1 K/mm3 (0.0-0.4) 03/09/21 10:01 Baso # (Auto) 0.0 K/mm3 (0.0-0.1) 03/09/21 10:01 Seg Neutrophils % 61.5 % (40.0-70.0) 03/09/21 10:01 Seg Neutrophils # 3.6 K/mm3 (1.8-7.7) 03/09/21 10:01 Sodium 140 mmol/L (137-145) 03/09/21 10:01 Potassium 4.1 mmol/L (3.6-5.0) 03/09/21 10:01 Chloride 103.8 mmol/L (98-107) 03/09/21 10:01 Carbon Dioxide 29 mmol/L (22-30) 03/09/21 10:01 Anion Gap 11 mmol/L 03/09/21 10:01 BUN 19 mg/dL (9-20) 03/09/21 10:01 Creatinine 1.1 mg/dL (0.8-1.3) 03/09/21 10:01 Estimated GFR > 60 ml/min 03/09/21 10:01 BUN/Creatinine Ratio 17 % 03/09/21 10:01 Glucose 83 mg/dL (75-100) 03/09/21 10:01 POC Glucose 106 mg/dL (70-105) H 03/08/21 18:32 Hemoglobin A1c 5.4 % (4-6) 03/09/21 10:01 Calcium 9.6 mg/dL (8.4-10.2) 03/09/21 10:01 Total Bilirubin 0.60 mg/dL (0.1-1.2) 03/09/21 10:01 AST 19 units/L (5-40) 03/09/21 10:01 ALT 34 units/L (7-56) 03/09/21 10:01 Alkaline Phosphatase 49 units/L (35-129) 03/09/21 10:01 Total Protein 6.5 g/dL (6.3-8.2) 03/09/21 10:01 Albumin 4.2 g/dL (3.9-5) 03/09/21 10:01 Albumin/Globulin Ratio 1.8 % 03/09/21 10:01 Triglycerides 209 mg/dL (2-149) H 03/09/21 10:01 Cholesterol 142 mg/dL (50-199) 03/09/21 10:01 LDL Cholesterol Direct 99 mg/dL (50-130) 03/09/21 10:01 HDL Cholesterol 33 mg/dL (40-59) L 03/09/21 10:01 Cholesterol/HDL Ratio 4.30 % 03/09/21 10:01 TSH 0.501 mlU/mL (0.270-4.200) 03/09/21 10:01 Syphilis IgG Antibody Nonreactive (NonReactive) 03/16/21 19:48 Coronavirus (PCR) Negative (Negative) 03/18/21 10:15 Last Vital Signs Temp 98.2 F 03/19/21 09:10 Pulse 65 03/19/21 09:10 Resp 18 03/19/21 09:10 BP 114/79 03/19/21 09:10 Pulse Ox 96 03/19/21 09:10
[2021-03-19] MEDS: QUEtiapine 25 MG TAB PO SCH (21:06)
[2021-03-19] MEDS: QUEtiapine 100 MG TAB PO SCH (21:06)
[2021-03-20 08:22] VITALS: BP 130/85
[2021-03-20] MEDS: GABAPENTIN 100 MG CAP PO SCH (09:09)
[2021-03-20] MEDS: lamoTRIgine 25 MG TAB PO SCH (09:09)
[2021-03-20] MEDS: hydrOXYzine PAMOATE 25 MG CAP PO PRN (09:42)
--- NOTE | 2021-03-20 10:03 | Discharge Summary ---
Providers - Providers Date of Admission: 03/08/21 17:41 Date of discharge: 03/20/21 Attending physician: LORI CHAUDHRY MD 03/08/21 15:05 Consult to Physician [CONS] Routine Comment: Consulting Provider: ESA[facility]ALS Physician Instructions: Reason For Exam: manage medical conditions Primary care physician: DIRECTOR INTERNAL CONTROL Hospitalization Reason for admission: schizophrenia Admitting Diagnosis: F20.9 - SCHIZOPHRENIA, UNSPECIFIED Condition: Stable Hospital course: The patient was provided inpatient psychiatric treatment with safe and supportive care, medication adjustment, adverse effect monitoring, medical evaluations, medical treatments, assessment and psycho-education. The patient's mood, cognition, behavior, moral support are improved and stabilized. St the time of discharge, the patient had no endangering behavior and no debilitating adverse effects. The patient agreed on potential consequences of no treatment and gave informed consent. 03/10/2021: The patient was seen eating breakfast, he reports doing well. He reports sleep as fair and appetite as good. He denies any current suicidal/homicidal ideation and denies hallucinations. Per nurse, the patient had a quiet night. No changes made today. 03/11/2021: The patient reports feeling better, but continues to have intermittent suicidal ideation. He states that he is worried about placement post discharge. He reports sleep as fair and appetite as good. He denies any current suicidal/homicidal ideation and denies hallucinations. Per nurse, the patient had a quiet night. Start lamictal 50mg po daily. 03/12/2021: The patient continues to endorse depression but states that it is improving. He reports sleep as fair and appetite as good. He denies any current suicidal/homicidal ideation and denies hallucinations. Per nurse, the patient had a quiet night. Per nurse the patient had a quiet night. Increased Seroquel to 150mg po QHS. 03/13/2021: The patient reports that he is doing better. He reports sleep as fair and appetite as good. He denies any current suicidal/homicidal ideation and denies hallucinations. Per nurse, the patient had a quiet night. Per nurse the patient had a quiet night. Will initiate Klonopin vince, patient was advised to request for Vistaril as a breakthrough. 03/14/2021: The patient was seen today. He is sleeping but easily arouses. He denies suicidal thoughts at present but states he was yesterday. He denies hallucination of any kind. He says he slept well and his appetite is fair. 03/15/2021: The patient was seen eating breakfast. He reports doing well on Klonopin tapering. He reports sleep as fair and appetite as good. He denies any current suicidal/homicidal ideation and denies hallucinations. Per nurse, the patient had a quiet night. Per nurse the patient had a quiet night. 03/16/2021: The patient reports doing well. He reports being worried about placement. No complications with Klonopin tapering. He reports sleep as fair and appetite as good. He denies any current suicidal/homicidal ideation and denies hallucinations. Per nurse, the patient had a quiet night. Per nurse the patient had a quiet night. 03/17 The patient was seen today. He is sleeping but easily arouses. He denies SI/HI. He also denies halluciantions of any kind. The patient is awaiting assistance for placement in [place]. Will discuss with the SW and plan to discharge safely. 03/18 The patient was seen today. He is awake, a/o x 3. He has an open wound his neck that he says is skin cancer. The area is oozing. He says it's been there for awhile but has never oozed before. He is concerned about it. The patient denies SI/HI at present, but states he has thoughts "on and off." He denies hallucinations. The patient also c/o of a headache. Discussed with the on duty nurse about the patient's concerns and instructed him to place a call to the hospitalist to have a look at the patient. 03/19 The patient was seen today. He is awake, a/o x 3. He is calm and cooperative. He denies SI/HI or hallucinations of any kind. He is concerned about his living situation. He says he needs a bus ticket back to [place], because he states he has no ID or cell phone. I spoke with the patient's mother who states she can not afford to purchase him a bus ticket. She says he is welcome to live with her. Disposition: 01 HOME / SELF CARE / HOMELESS Time spent for discharge: 35 Allergies/Adverse Reactions: Allergies No Known Allergies Allergy (Unverified 03/07/21 15:09) Vital Signs: Last Vital Signs Temp 97.7 F 03/20/21 08:12 Pulse 54 L 03/20/21 08:12 Resp 18 03/20/21 08:12 BP 130/85 03/20/21 08:12 Pulse Ox 99 03/20/21 08:12 Last Lab: Laboratory Last Values WBC 5.9 K/mm3 (4.5-11.0) 03/09/21 10:01 RBC 4.68 M/mm3 (3.65-5.03) 03/09/21 10:01 Hgb 14.9 gm/dl (11.8-15.2) 03/09/21 10:01 Hct 42.9 % (35.5-45.6) 03/09/21 10:01 MCV 92 fl (84-94) 03/09/21 10:01 MCH 32 pg (28-32) 03/09/21 10:01 MCHC 35 % (32-34) H 03/09/21 10:01 RDW 13.1 % (13.2-15.2) L 03/09/21 10:01 Plt Count 207 K/mm3 (140-440) 03/09/21 10:01 Lymph % (Auto) 24.8 % (13.4-35.0) 03/09/21 10:01 [place] % (Auto) 11.1 % (0.0-7.3) H 03/09/21 10:01 Eos % (Auto) 1.9 % (0.0-4.3) 03/09/21 10:01 Baso % (Auto) 0.7 % (0.0-1.8) 03/09/21 10:01 Lymph # (Auto) 1.5 K/mm3 (1.2-5.4) 03/09/21 10:01 [place] # (Auto) 0.7 K/mm3 (0.0-0.8) 03/09/21 10:01 Eos # (Auto) 0.1 K/mm3 (0.0-0.4) 03/09/21 10:01 Baso # (Auto) 0.0 K/mm3 (0.0-0.1) 03/09/21 10:01 Seg Neutrophils % 61.5 % (40.0-70.0) 03/09/21 10:01 Seg Neutrophils # 3.6 K/mm3 (1.8-7.7) 03/09/21 10:01 Sodium 140 mmol/L (137-145) 03/09/21 10:01 Potassium 4.1 mmol/L (3.6-5.0) 03/09/21 10:01 Chloride 103.8 mmol/L (98-107) 03/09/21 10:01 Carbon Dioxide 29 mmol/L (22-30) 03/09/21 10:01 Anion Gap 11 mmol/L 03/09/21 10:01 BUN 19 mg/dL (9-20) 03/09/21 10:01 Creatinine 1.1 mg/dL (0.8-1.3) 03/09/21 10:01 Estimated GFR > 60 ml/min 03/09/21 10:01 BUN/Creatinine Ratio 17 % 03/09/21 10:01 Glucose 83 mg/dL (75-100) 03/09/21 10:01 POC Glucose 106 mg/dL (70-105) H 03/08/21 18:32 Hemoglobin A1c 5.4 % (4-6) 03/09/21 10:01 Calcium 9.6 mg/dL (8.4-10.2) 03/09/21 10:01 Total Bilirubin 0.60 mg/dL (0.1-1.2) 03/09/21 10:01 AST 19 units/L (5-40) 03/09/21 10:01 ALT 34 units/L (7-56) 03/09/21 10:01 Alkaline Phosphatase 49 units/L (35-129) 03/09/21 10:01 Total Protein 6.5 g/dL (6.3-8.2) 03/09/21 10:01 Albumin 4.2 g/dL (3.9-5) 03/09/21 10:01 Albumin/Globulin Ratio 1.8 % 03/09/21 10:01 Triglycerides 209 mg/dL (2-149) H 03/09/21 10:01 Cholesterol 142 mg/dL (50-199) 03/09/21 10:01 LDL Cholesterol Direct 99 mg/dL (50-130) 03/09/21 10:01 HDL Cholesterol 33 mg/dL (40-59) L 03/09/21 10:01 Cholesterol/HDL Ratio 4.30 % 03/09/21 10:01 TSH 0.501 mlU/mL (0.270-4.200) 03/09/21 10:01 Syphilis IgG Antibody Nonreactive (NonReactive) 03/16/21 19:48 Coronavirus (PCR) Negative (Negative) 03/18/21 10:15 Core Measure Documentation - Palliative Care Palliative Care/ Comfort Measures: Not Applicable - Core Measures Any of the following diagnoses?: none Exam - Constitutional Vitals: Temp Pulse Resp BP Pulse Ox 97.7 F 54 L 18 130/85 99 03/20/21 08:12 03/20/21 08:12 03/20/21 08:12 03/20/21 08:12 03/20/21 08:12 General appearance: Present: no acute distress - EENT Eyes: Present: PERRL, EOM intact ENT: hearing intact, clear oral mucosa - Neck Neck: Present: supple, normal ROM - Respiratory Respiratory effort: normal Plan Activity: advance as tolerated Weight Bearing Status: Weight Bear as Tolerated Care Plan Goals: Maintain good and stable mental health Plan of Treatment: The patient should be compliant with medications, not to use drugs, and not to drink alcohol. The patient understands that if suicidal ideas, homicidal ideas or any endangering feeling arise, the patient should seek assistance including, but not limited to crisis hotline, and emergency room. Assessment: Schizophrenia Follow up with: PRIMARY CARE, [Primary Care Provider] - 7 Days Prescriptions: QUEtiapine [SEROquel] 150 mg PO QHS #45 tablet Gabapentin 100 mg PO TID #90 cap lamoTRIgine [LaMICtal] 50 mg PO DAILY #60 tablet hydrOXYzine PAMOATE [Vistaril] 25 mg PO Q6H PRN #120 capsule PRN Reason: Anxiety
== END 2021-03-20 13:45 | disposition home or self-care (01) | DRG 885 ==
LOC: 3A 14:51 → UNDOADMIN 14:51 → 5A 17:41
PROVIDERS: ADMIT Psychiatry & Neurology Psychiatry; ATTEND Psychiatry & Neurology Psychiatry
DX: F20.0 Paranoid schizophrenia (principal); F41.9 Anxiety disorder, unspecified; F32.9 Major depressive disorder, single episode, unspecified; Z20.822 Contact with and (suspected) exposure to COVID-19
CPT/HCPCS: 36415; 71045; 80053; 80061; 82962; 83036; 84443; 85025; 86592; G0378; Q0177; U0003